=== PATIENT | female | born 1970 | race Hispanic/Latino ===

== ENCOUNTER 2019-02-10 01:50 | Emergency (ER) | payer OTHER ==
[~2019-02-10] VITALS: Ht 162.6 cm; Wt 99.8 kg
--- OUTSIDE RECORDS SUMMARY | 2019-02-10 01:53 | XMS REPORT ---
Author Author Alejandro Cullen [facility] eClinicalWorks Address Unknown Phone Unavailable Care Team Providers Care Photoengraving Photographer Name Role Phone Alejandro Cullen CP Unavailable Allergies No Known Allergies Problems Problem Type Condition Code Onset Dates Condition Status Problem Urinary tract infection, site not specified N39.0 Active Problem Chronic kidney disease, stage 4 (severe) N18.4 Active Problem Vitamin D deficiency, unspecified E55.9 Active Problem Hypertensive chronic kidney disease with stage 1 through stage 4 chronic kidney disease, or unspecified chronic kidney disease I12.9 Active Problem Calculus of kidney N20.0 Active Medications No Known Medications Results No Known Results Summary Purpose eClinicalWorks Submission
--- OUTSIDE RECORDS SUMMARY | 2019-02-10 01:53 | XMS REPORT ---
Author Author Tucker Herzog [facility] eClinicalWorks Address Unknown Phone Unavailable Care Team Providers Care Applied Marine Physics Professor Name Role Phone Tucker Herzog Unavailable Encounters Encounter Location Date feeling ill Kacy Cullen MD [place] Sep 29, 2016 Problems Problem Type Condition ICD-9 Code Onset Dates Condition Status Problem Chronic kidney disease, stage 4 (severe) N18.4 Active Problem Hypertensive chronic kidney disease with stage 1 through stage 4 chronic kidney disease, or unspecified chronic kidney disease I12.9 Active Problem Urinary tract infection, site not specified N39.0 Active Problem Calculus of kidney N20.0 Active Assessment Urinary tract infection, site not specified N39.0 Active Medications Medication Code System Code Instructions Start Date End Date Status Dosage Macrobid MEDISPAN [address]-61 100 MG Orally every 12 hrs Aug 17, 2016 Oct 13, 2016 Active 1 capsule with food Social History Social History Element Qualifiers Date Reported Tobacco Use: . Are you a: former smoker used to smoke 4 cigarettes/day, When did you quit (years): 25 Aug 17, 2016 Use of recreational / street drugs? . Answer: No Aug 17, 2016 Marital Status: . Aug 17, 2016 Do you exercise? . Answer: No Aug 17, 2016 Do you drink alcohol? . Status: No Aug 17, 2016 Occupation: . Unemployed Aug 17, 2016 Summary Purpose eClinicalWorks Submission
--- OUTSIDE RECORDS SUMMARY | 2019-02-10 01:53 | XMS REPORT | Encounter Summary ---
Author Organization Unknown Address [address] [place] [address] Phone [phone] Care Team Providers Care Supervisor Pyrotechnic Loading Name Role Phone Dr. Corky Painter 3 [phone] Lm Beard MD 115 [phone] Javad Cullen 118 [phone] Reason for Visit nausea Instructions 1. Nausea Zofran 8 mg tablet promethazine 25 mg/mL injection solution 2. Gastroesophageal reflux disease ranitidine 150 mg tablet 3. Anxiety alprazolam 0.5 mg tablet 4. Body mass index 30+ - obesity aprenda acerca del peso saludable - [learning about healthy weight] ndice de masa corporal: instrucciones de cuidado - [body mass index: care instructions] 5. Elevated blood-pressure reading without diagnosis of hypertension presin arterial elevada: instrucciones de cuidado - [elevated blood pressure: care instructions] Discussion Note: None recorded. Plan of Care Reminders Provider Appointments None recorded. Lab None recorded. Referral None recorded. Procedures None recorded. Surgeries None recorded. Imaging None recorded. Medications Name Start Date alprazolam 0.5 mg tablet Take 1 tablet every day by oral route as needed for 3 days. ezetimibe 10 mg tablet Take 1 tablet every day by oral route as directed. promethazine 25 mg/mL injection solution 25 mg ranitidine 150 mg tablet Take 1 tablet twice a day by oral route as needed for 14 days. Zofran 8 mg tablet Take 1 tablet every 8 hours by oral route as needed for 5 days. Medications Administered Name Date promethazine 25 mg/mL injection solution 25 mg 7014-76-09K06:38:00 Vitals Height Weight BMI Blood Pressure 5 ft 3 in 222 lbs 39.3 kg/m2 (1) 180/106 mm[Hg] (2) 150/100 mm[Hg] Lab Results None recorded. Allergies Code Code System Name Reaction Severity Status Onset 733 RxNorm Ampicillin Active 412616 RxNorm Zocor Active Problems Name Status Onset Date Source Chronic Kidney Disease Active 11/22/2017 Polycystic Kidney Disease, Adult Type Active 07/10/2018 Unilateral Nephrectomy Active 10/10/2018 Procedures Date Name Performed by Remove Bladder Stone Information not available Kidney Endoscopy Information not available Vaccine List Vaccine Type influenza, unspecified formulation 08/16/2017 07/16/2018 Tdap 12/05/20180.5 mL Social History Smoking Status Never Smoker Past Encounters 12/10/2018 Nausea; Gastroesophageal Reflux Disease; Anxiety; Body Mass Index 30+ - Obesity; Elevated Blood-pressure Reading without Diagnosis of Hypertension Corky Hernandez MD: [address] [place] [address], Ph. 12/05/2018 Upper Respiratory Infection; Vaccination for Diphtheria, Pertussis, and Tetanus; Body Mass Index 40+ - Severely Obese Corky Hernandez MD: [address] [place] [address], Ph. History of Present Illness Note:Complaining of nervousness, restlessness and nausea since last night, started after eating. Concomitantly, burping, heartburn and epigastric pain. Denies bloating, fever, diarrhea, constipation, depression, suicidal/homicidal thoughts. Review of Systems Comprehensive General Adult ROS Reported By: Patient Constitutional: Constitutional: no fever Eyes: Eyes: no vision change Cardiovascular: Cardiovascular: no chest pain, no shortness of breath when walking, no shortness of breath when lying down, no palpitations, no lightheadedness Respiratory: Respiratory: no cough, no wheezing, no shortness of breath Gastrointestinal: Gastrointestinal: no abdominal pain, no vomiting, no constipation, no diarrhea, nausea, dyspepsia, GERD Musculoskeletal: Musculoskeletal: no muscle aches, no swelling in the extremities Integumentary: Skin: no rashes Neurologic: Neurologic: no loss of consciousness, no headaches Psychiatric: Psych: no depression, no sleep disturbances, no alcohol abuse, no hallucinations, no suicidal thoughts, anxiety Physical Exam General Adult Exam (male) Reported By: Patient Constitutional: General Appearance: healthy-appearing, obese. Level of Distress: NAD. Ambulation: ambulating normally Psychiatric: Insight: good judgement. Mental Status: active and alert, normal mood, normal affect. Orientation: to time, to place, to person. Memory: recent memory normal, remote memory normal Eyes: Lids and Conjunctivae: non-injected, no discharge. EOM: EOMI ENMT: Ears: TMs clear. Nose: no sinus tenderness. Lips, Teeth, and Gums: no mouth or lip ulcers. Oropharynx: moist mucous membranes Neck: Neck: supple, trachea midline. Thyroid: no enlargement, non-tender Lungs: Auscultation: breath sounds normal Cardiovascular: Heart Auscultation: RRR, normal S1, normal S2, no murmurs Abdomen: Inspection and Palpation: soft, non-distended, no guarding, no rebound tenderness, no masses, epigastric tenderness. Liver: no hepatomegaly. Spleen: no splenomegaly. Hernia: none palpable Neurologic: Gait and Station: normal gait
--- OUTSIDE RECORDS SUMMARY | 2019-02-10 01:53 | XMS REPORT ---
Author Author Tucker Herzog [facility] eClinicalWorks Address Unknown Phone Unavailable Care Team Providers Care Mutuel Teller Name Role Phone Tucker Herzog Unavailable Encounters Encounter Location Date feeling ill Kacy Cullen MD [place] Sep 29, 2016 abx correction Kacy Cullen MD [place] Dec 05, 2016 Problems Problem Type Condition ICD-9 Code Onset Dates Condition Status Problem Chronic kidney disease, stage 4 (severe) N18.4 Active Problem Hypertensive chronic kidney disease with stage 1 through stage 4 chronic kidney disease, or unspecified chronic kidney disease I12.9 Active Problem Urinary tract infection, site not specified N39.0 Active Problem Calculus of kidney N20.0 Active Medications Medication Code System Code Instructions Start Date End Date Status Dosage Macrobid MEDISPAN [id number] 100 MG Orally every 12 hrs Dec 12, 2016 Active 1 capsule with food Social History Social History Element Qualifiers Date Reported Tobacco Use: . Are you a: nonsmoker Oct 26, 2016 Use of recreational / street drugs? . Answer: No Oct 26, 2016 Do you drink alcohol? . Status: No Oct 26, 2016 Summary Purpose eClinicalWorks Submission
--- OUTSIDE RECORDS SUMMARY | 2019-02-10 01:53 | XMS REPORT | Encounter Summary ---
Author Organization Unknown Address [address] [place] [address] Phone [phone] Care Team Providers Care Health Sciences Program Coordinator Name Role Phone Dr. Corky Painter 3 [phone] Lm Beard MD 115 [phone] Javad Cullen 118 [phone] Reason for Visit nausea Instructions 1. Nausea [...] promethazine 25 mg/mL injection solution 25 mg 2670-90-50J88:38:00 Vitals Height Weight BMI Blood Pressure 5 ft 3 in 222 lbs 39.3 kg/m2 (1) 180/106 mm[Hg] (2) 150/100 mm[Hg] Lab Results None recorded. Allergies Code Code System Name Reaction Severity Status Onset 733 RxNorm Ampicillin Active 667830 RxNorm Zocor Active Problems Name Status Onset [...] Diagnosis of Hypertension Corky Hernandez MD: [address] [place] [address], Ph. 12/05/2018 Upper Respiratory Infection; Vaccination for Diphtheria, Pertussis, and Tetanus; Body Mass Index 40+ - Severely Obese Corky Hernandez MD: [address] [place] [address], Ph. History of Present Illness Note:Complaining of [...] no shortness of breath Gastrointestinal: Gastrointestinal: no vomiting, no constipation, no diarrhea, abdominal pain, nausea, dyspepsia, GERD Musculoskeletal: Musculoskeletal: no muscle [...]
--- OUTSIDE RECORDS SUMMARY | 2019-02-10 01:53 | XMS REPORT ---
Author Author Alejandro Cullen Organization eClinicalWorks Address Unknown Phone Unavailable Care Team Providers Care Automatic Oven Operator Name Role Phone Alejandro Cullen CP Unavailable Allergies No Known Allergies Problems Problem Type Condition Code Onset Dates Condition Status Problem Urinary tract infection, site not specified N39.0 Active Problem Chronic kidney disease, stage 4 (severe) N18.4 Active Problem Vitamin D deficiency, unspecified E55.9 Active Assessment Urinary tract infection, site not specified N39.0 Active Problem Hypertensive chronic kidney disease with stage 1 through stage 4 chronic kidney disease, or unspecified chronic kidney disease I12.9 Active Problem Calculus of kidney N20.0 Active Medications Medication Code System Code Instructions Start Date End Date Status Dosage Macrobid [facility] [address]-93 100 MG Orally every 12 hrs as needed Aug 07, 2017 Active 1 capsule with food Results No Known Results Summary Purpose eClinicalWorks Submission
--- OUTSIDE RECORDS SUMMARY | 2019-02-10 01:53 | XMS REPORT | Continuity of Care Document ---
Author Author [facility] Address Unknown Phone Unavailable Problems Problem Status Onset Date Classification Date Reported Comments Source Elevated blood-pressure reading without diagnosis of hypertension 12/10/2018 Diagnosis 12/10/2018 [facility] Anxiety 12/10/2018 Diagnosis 12/10/2018 [facility] Gastroesophageal reflux disease 12/10/2018 Diagnosis 12/10/2018 [facility] Nausea 12/10/2018 Diagnosis 12/10/2018 [facility] Body mass index 30+ - obesity 12/10/2018 Diagnosis 12/10/2018 [facility] Upper respiratory infection 12/05/2018 Diagnosis 12/10/2018 [facility] Body mass index 40+ - severely obese 12/05/2018 Diagnosis 12/10/2018 [facility] Vaccination for diphtheria, pertussis, and tetanus 12/05/2018 Diagnosis 12/10/2018 [facility] Unilateral Nephrectomy 10/10/2018 Problem 12/10/2018 [facility] Polycystic Kidney Disease, Adult Type 07/10/2018 Problem 12/10/2018 [facility] Chronic Kidney Disease 11/22/2017 Problem 12/10/2018 [facility] Urinary tract infection, site not specified Active Problem 10/20/2017 Nicolás Cullen Chronic kidney disease, stage 4 Active Problem 10/20/2017 Nicolás Cullen Vitamin D deficiency, unspecified Active Problem 10/20/2017 Nicolás Cullen Hypertensive chronic kidney disease with stage 1 through stage 4 chronic kidney disease, or unspecified chronic kidney disease Active Problem 10/20/2017 Nicolás Cullen Calculus of kidney Active Problem 10/20/2017 Nicolás Cullen Medications Medication Details Route Status Patient Instructions Ordering Provider Order Date Source Macrobid 1 capsule with food Orally Active 100 MG Orally every 12 hrs as needed Alyse 08/07/2017 Nicolás Burnettro Alyse Macrobid 1 capsule with food Orally Active 100 MG Orally every 12 hrs Ronald Valdivia 12/12/2016 Nicolás Cullen Macrobid 1 capsule with food Orally Active 100 MG Orally every 12 hrs Ronald Ashleyoza 08/17/2016 Nicolás Farnsworth Ciarraharjeet Alprazolam 0.5 MG Oral Tablet alprazolam 0.5 mg tablet Take 1 tablet every day by oral route as needed for 3 days. Active [facility] ezetimibe 10 MG Oral Tablet ezetimibe 10 mg tablet Take 1 tablet every day by oral route as directed. Active [facility] 1 ML Promethazine Hydrochloride 25 MG/ML Injection promethazine 25 mg/mL injection solution 25 mg Active [facility] Ranitidine 150 MG Oral Tablet ranitidine 150 mg tablet Take 1 tablet twice a day by oral route as needed for 14 days. Active [facility] Ondansetron 8 MG Oral Tablet [Zofran] Zofran 8 mg tablet Take 1 tablet every 8 hours by oral route as needed for 5 days. Active [facility] Azithromycin 250 MG Oral Tablet azithromycin 250 mg tablet TAKE 2 TABLETS (500 MG) BY ORAL ROUTE ONCE DAILY FOR 1 DAY THEN 1 TABLET (250 MG) BY ORAL ROUTE ONCE DAILY FOR 4 DAYS Active [facility] Codeine Phosphate 2 MG/ML / Guaifenesin 20 MG/ML Oral Solution [Cheratussin] Cheratussin AC 10 mg-100 mg/5 mL oral liquid Take 10 mL every 8 hours by oral route as needed for 5 days. Active [facility] Fluticasone propionate 0.05 MG/ACTUAT Metered Dose Nasal [place] fluticasone 50 mcg/actuation nasal spray,suspension [place] 1 spray twice a day by intranasal route as directed for 14 days. Active [facility] Allergies, Adverse Reactions, Alerts Substance Category Reaction Severity Reaction type Status Date Reported Comments Source Ampicillin Allergy to substance 11/07/2017 [facility] Zocor Allergy to substance 11/07/2017 [facility] Immunizations Immunization Date Given Site Status Last Updated Comments Source Tdap 12/05/2018 completed [facility] influenza, unspecified formulation 07/16/2018 completed [facility] influenza, unspecified formulation 08/16/2017 completed [facility] Results Order Name Results Value Reference Range Date Interpretation Comments Source Vital Signs Vital Sign Value Date Comments Source Diastolic (mm Hg) 100 12/10/2018 [facility] Height 63 12/10/2018 [facility] Systolic (mm Hg) 150 12/10/2018 [facility] Weight 222 12/10/2018 [facility] Diastolic (mm Hg) 100 12/05/2018 [facility] Height 63 12/05/2018 [facility] Systolic (mm Hg) 150 12/05/2018 [facility] Weight 223.2 12/05/2018 [facility] Encounters Location Location Details Encounter Type Encounter Number Reason For Visit Attending Provider ADM Date DC Date Status Source MD EDWINA Mims feeling ill [id number] 09/29/2016 09/29/2016 MD EDIWNA Martinez feeling ill [id number] 09/29/2016 09/29/2016 MD EDWINA Martinez abx correction [id number] 12/05/2016 12/05/2016 Nicolás Cullen [facility] Corky A. Inocencio Hernandez MD: [address] [place] [address], Ph. [id number] Corky Inocencio Hernandez 12/05/2018 [facility] Corky A. Inocencio Hernandez MD: [address] [place] [address], Ph. [id number] Corkysusan Hernandez 12/05/2018 [facility] Corky A. Inocencio Hernandez MD: [address] [place] [address], Ph. [id number] Corky Hernandez 12/05/2018 [facility] Corky A. Inocencio Hernandez MD: [address] [place] [address], Ph. [id number] Corky Hernandez 12/10/2018 [facility] Corky Hernandez MD: [address] [place], [place] [address], Ph. [id number] Corky Hernandez 12/10/2018 [facility] Procedures Procedure Code Date Perfomer Comments Source Remove Bladder Stone 15963 [facility] Kidney Endoscopy [address] [facility]
--- OUTSIDE RECORDS SUMMARY | 2019-02-10 01:53 | XMS REPORT | Clinical Summary ---
Author Author BRITT [facility] Organization [facility] Address Unknown Phone Unavailable Care Team Providers [employer]er Name Role Phone Tono Gaming MD PCP Unavailable Allergies Comments Active Allergy Reactions Severity Noted Date Ampicillin Rash Low 05/06/2018 Simvastatin Anaphylaxis High 05/06/2018 Medications End Date Status Medication Sig Dispensed Refills Start Date Active traMADol (ULTRAM) 50 mg Take 50 mg by 0 tablet mouth every 6 (six) hours as needed for Pain. Active acetaminophen-codeine Take 1 tablet 0 (TYLENOL #3) 300-30 mg by mouth per tablet every 4 (four) hours as needed for Pain. Active gabapentin (NEURONTIN) Take 1 30 capsule 0 300 MG capsule capsule (300 8 mg total) by mouth daily For post-operativ e pain. 05/06/2018 Discontinued sulfamethoxazole-trimetho Take 1 tablet 14 tablet 0 prim (BACTRIM DS) 800-160 (160 mg of 8 mg per tablet trimethoprim total) by mouth 2 (two) times daily for 7 days smx-tmp DS (BACTRIM) 800-160 mg tabs (1tab q12 D10). 05/13/2018 sulfamethoxazole-trimetho Take 1 tablet 14 tablet 0 prim (BACTRIM DS) 800-160 (160 mg of 8 mg per tablet trimethoprim total) by mouth 2 (two) times daily for 7 days smx-tmp DS (BACTRIM) 800-160 mg tabs (1tab q12 D10). 09/05/2018 docusate sodium (COLACE) Take 1 20 capsule 0 100 MG capsule capsule (100 8 mg total) by mouth 2 (two) times daily for 10 days. 09/05/2018 acetaminophen-codeine Take 1 tablet 20 tablet 0 (TYLENOL-CODEINE #3) by mouth 8 300-30 mg per tablet every 6 (six) hours as needed for up to 10 days. Max Daily Amount: 4 tablets Active Problems Problem Noted Date Acute left lower quadrant pain 09/19/2018 Atrophic kidney 08/24/2018 Encounters Care Team Description Date Type Specialty Link, Lm Bradshaw MD , [facility] Room Nephrolithiasis; Hydronephrosis, unspecified hydronephrosis type 01/23/2019 Hospital Computed Tomography Encounter 09/20/2018 Travel , MD Kyaw Moore Kinjal M., MD Lin, Fang-Ying, MD Acute left lower quadrant pain (Primary Dx); Complicated urinary tract infection; Acute renal insufficiency 09/19/2018 Hospital Oncology - Encounter 09/21/2018 LinkLm MD Nephrolithiasis (Primary Dx); Hydronephrosis, unspecified hydronephrosis type 09/18/2018 Outside Orders Central Scheduling Link, Lm Bradshaw MD LAPAROSCOPY,NEPHRECTOMY 08/24/2018 Surgery Kendell Valderrama MD 08/24/2018 Anesthesia Event Link, Lm Bradshaw MD 08/24/2018 Hospital General Internal Medicine - Encounter 08/26/2018 Lm Beard MD 08/20/2018 Hospital Pre-Admission Testing Encounter 08/20/2018 Orders Only General Internal Medicine Gunnar Mock MD Atypical chest pain (Primary Dx); Essential hypertension; Obesity, unspecified classification, unspecified obesity type, unspecified whether serious comorbidity present 05/06/2018 Emergency Emergency Medicine 05/06/2018 Orders Only General Internal Medicine after 02/09/2018 Social History Date Tobacco Use Types Packs/Day Years Used Never Smoker Smokeless Tobacco: Never Used Alcohol Use Drinks/Week oz/Week Comments No Sex Assigned at Date Recorded Not on file Industry Job Start Date Occupation Not on file Not on file Not on file Travel End Travel History Travel Start No recent travel history available. Last Filed Vital Signs Time Taken Vital Sign Reading 09/21/2018 12:00 PM [facility] Blood Pressure 152/84 09/21/2018 12:00 PM [facility] Pulse 78 09/21/2018 12:00 PM [facility] Temperature 36.9 C (98.5 F) 09/21/2018 12:00 PM [facility] Respiratory Rate 18 09/21/2018 12:00 PM [facility] Oxygen Saturation 98% - Inhaled Oxygen - Concentration 09/20/2018 3:17 AM [facility] Weight 100.7 kg (221 lb 14.4 oz) 09/20/2018 3:17 AM [facility] Height 162.6 cm (5' 4") 09/20/2018 3:17 AM [facility] Body Mass Index 38.09 Plan of Treatment Not on file Procedures Comments Procedure Name Priority Date/Time Associated Diagnosis CT ABDOMEN/PELVIS WITHOUT Routine 01/23/2019 Nephrolithiasis IV CONTRAST 8:27 AM CDT Hydronephrosis, unspecified hydronephrosis type CBC W/PLT COUNT & AUTO Routine 09/21/2018 DIFFERENTIAL 5:12 AM [facility] CBC W/PLT COUNT & AUTO Routine 09/21/2018 DIFFERENTIAL 5:12 AM [facility] BASIC METABOLIC PANEL (7) Routine 09/21/2018 5:12 AM [facility] CBC W/PLT COUNT & AUTO Routine 09/20/2018 DIFFERENTIAL 5:53 AM [facility] CBC W/PLT COUNT & AUTO Routine 09/20/2018 DIFFERENTIAL 5:53 AM [facility] BASIC METABOLIC PANEL (7) Routine 09/20/2018 5:53 AM [facility] URINE CULTURE STAT 09/20/2018 12:39 AM [facility] CT ABDOMEN/PELVIS WITHOUT STAT 09/19/2018 IV CONTRAST 9:52 PM [facility] SCREEN, URINE STAT 09/19/2018 8:55 PM [facility] URINALYSIS W/ MICROSCOPIC STAT 09/19/2018 8:55 PM [facility] CBC W/PLT COUNT & AUTO STAT 09/19/2018 DIFFERENTIAL 8:13 PM [facility] HEPATIC FUNCTION PANEL STAT 09/19/2018 8:13 PM [facility] CBC W/PLT COUNT & AUTO STAT 09/19/2018 DIFFERENTIAL 8:13 PM [facility] BASIC METABOLIC PANEL (7) STAT 09/19/2018 8:13 PM [facility] BASIC METABOLIC PANEL (7) Routine 08/26/2018 12:23 PM [facility] CBC W/PLT COUNT & AUTO Routine 08/26/2018 DIFFERENTIAL 5:49 AM [facility] CBC W/PLT COUNT & AUTO Routine 08/26/2018 DIFFERENTIAL 5:49 AM [facility] BASIC METABOLIC PANEL (7) Routine 08/26/2018 5:49 AM [facility] CBC W/PLT COUNT & AUTO Routine 08/25/2018 DIFFERENTIAL 5:10 AM [facility] CBC W/PLT COUNT & AUTO Routine 08/25/2018 DIFFERENTIAL 5:10 AM [facility] BASIC METABOLIC PANEL (7) Routine 08/25/2018 5:10 AM [facility] HEMOGLOBIN AND HEMATOCRIT Routine 08/24/2018 5:25 PM [facility] BASIC METABOLIC PANEL (7) Routine 08/24/2018 5:25 PM [facility] TISSUE EXAM AP Routine 08/24/2018 4:20 PM [facility] FUNGUS CULTURE + SMEAR Routine 08/24/2018 2:53 PM [facility] SURGICALLY OBTAINED Routine 08/24/2018 CULTURE + GRAM STAIN 2:53 PM [facility] ANAEROBIC CULTURE Routine 08/24/2018 2:53 PM [facility] LAPAROSCOPY,NEPHRECTOMY 08/24/2018 Nonfunctioning kidney 12:30 PM [facility] POCT , URINE STAT 08/24/2018 11:02 AM [facility] TRANSFUSION SERVICE 08/21/2018 REPORT - SCAN 6:03 PM [facility] TYPE AND SCREEN, Routine 08/20/2018 AUTOMATED 5:26 PM [facility] ECG 12-LEAD Routine 08/20/2018 5:23 PM [facility] ECG 12-LEAD Routine 08/20/2018 5:23 PM [facility] Procedure Note - Interface, External Ris In - 08/20/2018 5:56 PM [facility] Ventricula r Rate 83 BPM Atrial Rate 83 BPM P-R Interval 146 ms QRS Duration 86 ms Q-T Interval 374 ms QTC Calculatio n(Bazett) 439 ms P [place] 43 degrees R [place] 17 degrees T [place] 37 degrees Normal sinus rhythm Normal ECG When compared with ECG of 8 02:14, Minimal criteria for Anterior infarct are no longer Present ED ECG INTERPRETATION Routine 05/07/2018 5:15 PM CDT B-TYPE NATRIURETIC FACTOR STAT 05/06/2018 (BNP) 5:12 AM CDT COMPREHENSIVE METABOLIC STAT 05/06/2018 PANEL 5:12 AM CDT TROPONIN I STAT 05/06/2018 5:12 AM CDT LIPASE STAT 05/06/2018 5:12 AM CDT MAGNESIUM STAT 05/06/2018 5:12 AM CDT XR CHEST 1 VIEW STAT 05/06/2018 PORTABLE/BEDSIDE 2:46 AM CDT URINALYSIS MICROSCOPIC Routine 05/06/2018 2:36 AM CDT URINALYSIS WITH STAT 05/06/2018 MICROSCOPIC IF INDICATED 2:36 AM CDT CBC W/PLT COUNT & AUTO STAT 05/06/2018 DIFFERENTIAL 2:35 AM CDT CBC W/PLT COUNT & AUTO STAT 05/06/2018 DIFFERENTIAL 2:35 AM CDT ECG 12-LEAD Routine 05/06/2018 2:14 AM CDT Procedure Note - Interface, External Ris In - 05/06/2018 6:27 AM CDT Ventricula r Rate 94 BPM Atrial Rate 94 BPM P-R Interval 160 ms QRS Duration 74 ms Q-T Interval 362 ms QTC Calculatio n(Bazett) 452 ms P [place] 33 degrees R [place] 12 degrees T [place] 35 degrees Normal sinus rhythm Cannot rule out Anterior infarct , age undetermin ed Abnormal ECG No previous ECGs available ECG 12-LEAD STAT 05/06/2018 2:14 AM CDT after 02/09/2018 Results * CT Abdomen/Pelvis without IV Contrast (01/23/2019 8:27 AM CDT) Only the most recent of 2 results within the time period is included. Specimen Narrative Performed At FINAL REPORT [employer] ABDOMINAL AND PELVIS CT DATED 01/23/2019 COMPARISON: September 19, 2018 CLINICAL INFORMATION:Renal stone Protocol. Follow up on stone burden status of solitary kidney TECHNIQUE:Axial images of the abdomen and pelvis were obtained from diaphragm to the pubic symphysis without GI or intravenous contrast. This exam was performed according to our departmental dose-optimization program, which includes automated exposure control, adjustment of the mA and/or kV according to patient size and/or use of interactive reconstruction technique. COMMENT: Liver and spleen are normal in size without focal abnormality.Gallbladder is contracted. No gallstone or biliary dilatation is noted. Pancreas and adrenals are unremarkable. Left skin is surgically absent. Again noted staghorn stones in upper pole right kidney unchanged from prior examination. A peripheral calcified cystic lesion is seen in the midpole right kidney measuring approximately 2.6 x 4.7 cm. A partially calcified cyst is seen inferior pole right kidney measuring 3.2 x 3.5 cm. Several small stones are seen in the mid inferior pole left kidney. No hydronephrosis or hydroureter is seen on the right. There is minimal uroepithelial thickening involving the right renal pelvis and proximal right ureter. The small and large bowel are suboptimally evaluated secondary to lack of GI and intravenous contrast. Diverticular disease is seen in the large bowel without diverticulitis. The small bowel and appendix are normal in caliber. Uterus and ovaries are unremarkable. No mass, adenopathy or ascites is present. IMPRESSION: 1. Status post left nephrectomy. 2. Stable staghorn renal stones in the upper pole right kidney and peripheral calcified cystic lesions in the mid and inferior pole right kidney. 3. Diverticulosis without diverticulitis. Signed: Jadyn Gonzalez MD Report Verified Date/Time:01/23/2019 08:42:46 Reading Location: [address] Reading Room Procedure Note Interface, External Ris In - 01/23/2019 8:45 AM CDT FINAL REPORT ABDOMINAL AND PELVIS CT DATED 01/23/2019 COMPARISON: September 19, 2018 CLINICAL INFORMATION: Renal stone Protocol. Follow up on stone burden status of solitary kidney TECHNIQUE: Axial images of the abdomen and pelvis were obtained from diaphragm to the pubic symphysis without GI or intravenous contrast. This exam was performed according to our departmental dose-optimization program, which includes automated exposure control, adjustment of the mA and/or kV according to patient size and/or use of interactive reconstruction technique. COMMENT: Liver and spleen are normal in size without focal abnormality. Gallbladder is contracted. No gallstone or biliary dilatation is noted. Pancreas and adrenals are unremarkable. Left skin is surgically absent. Again noted staghorn stones in upper pole right kidney unchanged from prior examination. A peripheral calcified cystic lesion is seen in the midpole right kidney measuring approximately 2.6 x 4.7 cm. A partially calcified cyst is seen inferior pole right kidney measuring 3.2 x 3.5 cm. Several small stones are seen in the mid inferior pole left kidney. No hydronephrosis or hydroureter is seen on the right. There is minimal uroepithelial thickening involving the right renal pelvis and proximal right ureter. The small and large bowel are suboptimally evaluated secondary to lack of GI and intravenous contrast. Diverticular disease is seen in the large bowel without diverticulitis. The small bowel and appendix are normal in caliber. Uterus and ovaries are unremarkable. No mass, adenopathy or ascites is present. IMPRESSION: 1. Status post left nephrectomy. 2. Stable staghorn renal stones in the upper pole right kidney and peripheral calcified cystic lesions in the mid and inferior pole right kidney. 3. Diverticulosis without diverticulitis. Signed: Jadyn Gonzalez MD Report Verified Date/Time: 01/23/2019 08:42:46 Reading Location: [address] Transitional Reading Room Performing Organization Address City/State/Zipcode Phone Number GE [facility]IS * CBC with platelet count + automated diff (09/21/2018 5:12 AM [facility]) Only the most recent of 6 results within the time period is included. WBC 7.2 3.5 - 10.5 K/L [facility] RBC 4.09 3.93 - 5.22 M/L [facility] Hemoglobin 9.9 (L) 11.2 - 15.7 GM/DL [facility] Hematocrit 33.1 (L) 34.1 - 44.9 % [facility] MCV 80.9 79.4 - 94.8 fL [facility] MCH 24.2 (L) 25.6 - 32.2 pg [facility] MCHC 29.9 (L) 32.2 - 35.5 GM/DL [facility] RDW 15.4 (H) 11.7 - 14.4 % [facility] Platelets 244 150 - 450 K/CU MM [facility] MPV 12.0 9.4 - 12.3 fL [facility] nRBC 0 0 - 0 /100 WBC [facility] % Neutros 70 % [facility] % Lymphs 17 % [facility] % Monos 9 % [facility] % Eos 4 % [facility] % Baso 1 % [facility] # Neutros 5.07 1.56 - 6.13 K/L [facility] # Lymphs 1.19 1.18 - 3.74 K/L [facility] # Monos 0.62 (H) 0.24 - 0.36 K/L [facility] # Eos 0.27 0.04 - 0.36 K/L [facility] # Baso 0.05 0.01 - 0.08 K/L [facility] Immature 0 0 - 1 % [facility] Granulocytes-[facility] Specimen Blood Performing Organization Address City/[facility]/Zipcode Phone Number [facility] [address] [place] [phone] [facility] * Basic Metabolic Panel (09/21/2018 5:12 AM [facility]) Only the most recent of 7 results within the time period is included. Sodium 136 136 - 145 meq/L [facility] Potassium 4.1 3.5 - 5.1 meq/L [facility] Chloride 109 (H) 98 - 107 meq/L [facility] CO2 18 (L) 22 - 29 meq/L [facility] BUN 25 (H) 7 - 21 mg/dL [facility] Creatinine 1.90 (H) 0.57 - 1.25 mg/dL [facility] Glucose 96 70 - 105 mg/dL [facility] Calcium 8.6 8.4 - 10.2 mg/dL [facility] EGFR 28Comment: ESTIMATED GFR IS mL/min/1.73 sq m [facility] NOT ACCURATE CREATININE [facility] CLEARANCE IN PREDICTING GLOMERULAR FILTRATION RATE. ESTIMATED GFR IS NOT APPLICABLE FOR DIALYSIS PATIENTS. Specimen Blood Performing Organization Address [facility] Cent[facility]ode Phone Number [address] [address] [phone] * Urine culture (09/20/2018 12:39 AM [facility]) Result >100,000 col/mL skin ca [facility] Specimen Urine Performing Organization Address City/[facility]/Zipcode Phone Number [place] [phone] [place] [address] [facility] * Screen, urine (09/19/2018 8:55 PM [facility]) Preg Test, Ur Negative [facility] Specimen Urine Performing Organization Address City/[facility]/Zipcode Phone Number [facility] [address] [address] [facility] * Urinalysis w/Microscopic (09/19/2018 8:55 PM [facility]) Color, UA Light Yellow [facility] Clarity, UA Hazy [facility] Specific [place], UA 1.011 1.001 - 1.035 [facility] pH, UA 6.0 5.0 - 8.0 [facility] Protein, UA 50 mg/dL (A) Negative [facility] Glucose, UA Negative Negative [facility] Ketones, UA Negative Negative [facility] Bilirubin, UA Negative Negative [facility] Blood, UA Small (A) Negative [facility] Nitrite, UA Negative Negative [facility] Leukocytes, UA Large (A) Negative [facility] Urobilinogen, UA 0.2 0.2 - 1.0 mg/dL [facility] RBC, UA 13 /HPF [facility] WBC, UA >182 /HPF [facility] Bacteria, UA Rare [facility] Squam Epithel, UA 1 /HPF [facility] Specimen Source Urine, Clean Catch [facility] Specimen Urine Performing Organization Address City/State/Zipcode Phone Number [address] [address] [facility] * Hepatic function panel (09/19/2018 8:13 PM [facility]) Protein, Total 7.7 6.0 - 8.3 gm/dL [facility] Albumin 4.0 3.5 - 5.0 g/dL [facility] Total Bilirubin 0.4 0.2 - 1.2 mg/dL [facility] Bilirubin, Direct 0.1 0.1 - 0.5 mg/dL [facility] Alkaline Phosphatase 80 40 - 150 U/L [facility] AST 11 5 - 34 U/L [facility] ALT <6 (L) 6 - 55 U/L [facility] Specimen Blood Performing Organization Address City/[facility] Cent[facility]ode Phone Number [facility] [address] [place], [place] [phone] [facility] * Hemoglobin and hematocrit (08/24/2018 5:25 PM [facility]) Hemoglobin 9.6 (L) 11.2 - 15.7 GM/DL [facility] Hematocrit 31.2 (L) 34.1 - 44.9 % [facility] Specimen Blood Performing Organization Address City/[facility] Center[facility]i Phone Number [facility] [address] [place], [place] [phone] [facility] * Tissue Exam (08/24/2018 4:20 PM [facility]) Case Report Surgical Pathology [facility] Report [facility] Case: [id number] Authorizing Provider:Lm Beard MD Collected: 08/24/2018 1620 Ordering Location: [facility] PERIOPERATIVE Received: 08/27/2018 0820 SERVICES Pathologist: Julius Coffey MD Specimen:Kidney, Left DIAGNOSIS PART A LEFT KIDNEY, [facility] NEPHRECTOMY: [facility] END STAGE KIDNEY DISEASE WITH NEPHROLITHIASIS AND ASSOCIATED DILATIONAL CHANGES. NEGATIVE FOR CARCINOMA. MULTIPLE REACTIVE LYMPH NODES. Signing Pathologist Direct Phone Line: [phone] CPT Code(s) 62280 [facility] CLINICAL HISTORY Nonfunctioning kidney [facility] SPECIMEN SOURCE Left kidney [facility] GROSS DESCRIPTION Received fresh labeled [facility] "kidney, left" is a 1,327 gm, [facility] 22.0 x 17.0 x 8.0 cm, left simple nephrectomy specimen with an attached 5.5 cm in length x 0.3 cm in diameter ureter. The adrenal gland is not present. The kidney is bivalved to reveal a markedly dilated pelvis and caliceal system containing yellow-aguilera semisolid material and multiple light-aguilera calculi ranging in size from 0.3 cm to 1.5 cm in greatest dimension. The lining of the pelvis and caliceal system is gaston-white and smooth. No discrete masses are identified. The surrounding renal parenchyma is pale-aguilera, dense and unremarkable. Section code: A1, parallel ureteral and vascular resection margins; A2-A11, sales representative health insurance sections of kidney; A12-A14, multiple intact lymph nodes. DB/ew MICROSCOPIC DESCRIPTION PERFORMED [facility] Specimen Tissue Performing Organization Address [facility] Centercomi Phone Number [address] [phone] [facility] * Anaerobic culture (08/24/2018 2:53 PM [facility]) Result No anaerobes isolated [facility] Specimen Urine Performing Organization Address [facility] Centercode Phone Number [address] [phone] [facility] * Surgically obtained culture + gram stain (08/24/2018 2:53 PM [facility]) Result No growth [facility] Gram Stain Result <1+ WBCs [facility] Gram Stain Result No organisms seen [facility] Specimen Urine Performing Organization Address [facility] Centercode Phone Number [address] [address] [facility] * Fungus culture + smear (08/24/2018 2:53 PM [facility]) Result No fungus isolated in 28 days [facility] Fungus Smear No fungi seen [facility] Specimen Urine Performing Organization Address [facility] Centercode Phone Number [address] [address] [facility] * POCT , urine (08/24/2018 11:02 AM [facility]) Test Urine, POC Negative Control line present?, Yes POC Background clear?, POC Yes UPT Cassette Lot #, POC [id number] UPT Cassette Expiration 02/13/2020 Date, POC Specimen * TRANSFUSION SERVICE REPORT - SCAN (08/21/2018 6:03 PM [facility]) Narrative Performed At * Type and screen, automated (08/20/2018 5:26 PM [facility]) ABO/RH AUTOMATED (BEAKER) O POSITIVE [facility] Ab Scrn NEGATIVE [facility] Specimen Blood Performing Organization Address City/State/Zipcode Phone Number [facility] [address] [place] [address] [facility] * ECG 12 lead (08/20/2018 5:23 PM [facility]) Only the most recent of 2 results within the time period is included. Specimen Narrative Performed At Ventricular Rate 83 BPM GE MUSE Atrial Rate 83 BPM P-R Interval 146 ms QRS Duration 86 ms Q-T Interval 374 ms QTC Calculation(Bazett) 439 ms P [place] 43 degrees R [place] 17 degrees T [place] 37 degrees Normal sinus rhythm Normal ECG When compared with ECG of 06-MAY-2018 02:14, Minimal criteria for Anterior infarct are no longer Present Confirmed by Jagruti FIELDS MICHAEL ([id number]) on 08/21/2018 6:28:01 AM Procedure Note Interface, External Ris In - 08/21/2018 6:28 AM DIRECTOR [facility] Ventricular Rate 83 BPM Atrial Rate 83 BPM P-R Interval 146 ms QRS Duration 86 ms Q-T Interval 374 ms QTC Calculation(Bazett) 439 ms P [place] 43 degrees R [place] 17 degrees T [place] 37 degrees Normal sinus rhythm Normal ECG When compared with ECG of 06-MAY-2018 02:14, Minimal criteria for Anterior infarct are no longer Present Confirmed by Jagruti FIELDS MICHAEL ([id number]) on 08/21/2018 6:28:01 AM Performing Organization Address City/State/Zipcode Phone Number [employer] * ED ECG Interpretation (05/07/2018 5:15 PM CDT) Narrative Performed At Gunnar Mock MD 05/07/20185:15 PM ECG/EKG Interpretation Date/Time: 05/06/2018 2:14 AM Performed by: GUNNAR MOCK Authorized by: GUNNAR MOCK The ECG was interpreted by ED physician. The ECG is interpreted as sinus rhythm. Rate is normal rate. Heart rate is 94 BPM. Conduction: conduction normal. ST segments normal. T waves normal. [place] is normal. Other findings: no other findings. Clinical Impression: abnormal ECGECG reviewed and does not meet STEMI criteria. Patient tolerance: Patient tolerated the procedure well with no immediate complications * Troponin I (05/06/2018 5:12 AM CDT) Troponin I <0.01 0.00 - 0.03 ng/mL [facility] Specimen Blood Narrative Performed At Troponin I (TnI) levels must be interpreted in the context of the presenting [facility] symptoms and the clinical findings. Elevated TnI levels indicate myocardial [facility] damage, but are not specific for ischemic heart disease. Elevated TnI levels are seen in patients with other cardiac conditions (including myocarditis and congestive heart failure), and slight TnI elevations occur in patients with other conditions, including sepsis, renal failure, acidosis, acute neurological disease, and persistent tachyarrhythmia. Performing Organization Address [facility] Phone Number [address] * B-type natriuretic peptide (05/06/2018 5:12 AM CDT) BNP 18 0 - 100 pg/mL [facility] Specimen Blood Performing Organization Address [facility] [place] [address] [phone] * Magnesium (05/06/2018 5:12 AM CDT) Magnesium 2.0 1.6 - 2.6 mg/dL [facility] Specimen Blood Performing Organization Address [facility] [place] [address] [facility] * Lipase (05/06/2018 5:12 AM CDT) Lipase 19 8 - 78 U/L [facility] Specimen Blood Performing Organization Address City/State/Zipcode Phone Number [facility] [address] [place] [address] [facility] * Comprehensive metabolic panel (05/06/2018 5:12 AM CDT) Protein, Total 7.5 6.0 - 8.3 gm/dL [facility] Albumin 3.8 3.5 - 5.0 g/dL [facility] Alkaline Phosphatase 84 40 - 150 U/L [facility] Total Bilirubin 0.3 0.2 - 1.2 mg/dL [facility] Sodium 135 (L) 136 - 145 meq/L [facility] Potassium 3.9 3.5 - 5.1 meq/L [facility] Chloride 107 98 - 107 meq/L [facility] CO2 19 (L) 22 - 29 meq/L [facility] BUN 26 (H) 7 - 21 mg/dL [facility] Creatinine 1.49 (H) 0.57 - 1.25 mg/dL [facility] Glucose 111 (H) 70 - 105 mg/dL [facility] Calcium 9.2 8.4 - 10.2 mg/dL [facility] AST 15 5 - 34 U/L [facility] ALT 12 6 - 55 U/L [facility] EGFR 38Comment: ESTIMATED GFR IS mL/min/1.73 sq m [facility] NOT ACCURATE CREATININE [facility] CLEARANCE IN PREDICTING GLOMERULAR FILTRATION RATE. ESTIMATED GFR IS NOT APPLICABLE FOR DIALYSIS PATIENTS. Specimen Blood Performing Organization Address City/State/Zipcode Phone Number [facility] [address] [place] [address] [facility] * XR chest 1 view portable / bedside (05/06/2018 2:46 AM CDT) Specimen Narrative Performed At FINAL REPORT GE RIS RAD, CHEST, 1 VIEW, NON DEPT INDICATION: chest pain COMPARISON: None TECHNIQUE: Single frontal view of the chest. IMPRESSION: Low lung volumes. Cardiomediastinal silhouette within normal limits. No overt consolidative or congestive change. No acute osseous abnormality. Signed: Tani Nunes MD Report Verified Date/Time:05/06/2018 02:51:24 Reading Location: [address] Reading Room Procedure Note Interface, External Ris In - 05/06/2018 2:53 AM CDT FINAL REPORT RAD, CHEST, 1 VIEW, NON DEPT INDICATION: chest pain COMPARISON: None TECHNIQUE: Single frontal view of the chest. IMPRESSION: Low lung volumes. Cardiomediastinal silhouette within normal limits. No overt consolidative or congestive change. No acute osseous abnormality. Signed: Tani Nunes MD Report Verified Date/Time: 05/06/2018 02:51:24 Reading Location: [address] Reading Room Performing Organization Address City/State/Zipcode Phone Number RIS * Urinalysis Microscopic Only (05/06/2018 2:36 AM CDT) RBC, UA 16 /HPF [facility] WBC, UA 36 /HPF [facility] Bacteria, UA Rare [facility] Squam Epithel, UA <1 /HPF [facility] Specimen Urine Performing Organization Address City/State/Zipcode Phone Number [place] [phone] [place] [address] [facility] * Urinalysis with Microscopic If Indicated (05/06/2018 2:36 AM CDT) Color, UA Colorless [facility] Clarity, UA Clear [facility] Specific [place], UA 1.003 1.001 - 1.035 [facility] pH, UA 6.5 5.0 - 8.0 [facility] Protein, UA 20 mg/dL (A) Negative [facility] Glucose, UA Negative Negative [facility] Ketones, UA Negative Negative [facility] Bilirubin, UA Negative Negative [facility] Blood, UA Moderate (A) Negative [facility] Nitrite, UA Negative Negative [facility] Leukocytes, UA Large (A) Negative [facility] Urobilinogen, UA 0.2 0.2 - 1.0 mg/dL [facility] Specimen Source [facility] Specimen Urine Performing Organization Address City/State/Zipcode Phone Number [facility] [address] [place] [address] [facility] after 02/09/2018 Insurance Payer Benefit Subscriber ID Type Phone Address Plan / Group [employer] xxxxxxxxxxx [employer] Advance Directives For more information, please contact: [place] [address] Date Inactivated Comments Code Status Date Activated Full Code 09/19/2018 11:59 PM This code status was determined by: Patient 09/19/2018 5:03 PM Full Code 08/24/2018 7:19 PM This code status was determined by: Patient
--- OUTSIDE RECORDS SUMMARY | 2019-02-10 01:53 | XMS REPORT | Encounter Summary ---
Author Organization Unknown Address [address] [place] [address] Phone [phone] Care Team Providers Care Health Physics Technician Name Role Phone Dr. Corky Painter 3 [phone] Lm Beard MD 115 [phone] Javad Cullen 118 [phone] Reason for Visit Right ear pain/problem; headaches; cough / congestion Instructions 1. Upper respiratory infection azithromycin 250 mg tablet Kenalog 40 mg/mL suspension for injection fluticasone 50 mcg/actuation nasal spray,suspension Cheratussin AC 10 mg-100 mg/5 mL oral liquid 2. Vaccination for diphtheria, pertussis, and tetanus Adacel (Tdap Adolesn/Adult)(PF)2 Lf-(2.5-5-3-5)-5 Lf/0.5 mL IM syringe 3. Body mass index 40+ - severely obese aprenda acerca del peso saludable - [learning about healthy weight] ndice de masa corporal: instrucciones de cuidado - [body mass index: care instructions] Discussion Note: None recorded. Plan of Care Reminders Provider Appointments None recorded. Lab None recorded. Referral None recorded. Procedures None recorded. Surgeries None recorded. Imaging None recorded. Medications Name Start Date azithromycin 250 mg tablet TAKE 2 TABLETS (500 MG) BY ORAL ROUTE ONCE DAILY FOR 1 DAY THEN 1 TABLET (250 MG) BY ORAL ROUTE ONCE DAILY FOR 4 DAYS Cheratussin AC 10 mg-100 mg/5 mL oral liquid Take 10 mL every 8 hours by oral route as needed for 5 days. ezetimibe 10 mg tablet Take 1 tablet every day by oral route as directed. fluticasone 50 mcg/actuation nasal spray,suspension [place] 1 spray twice a day by intranasal route as directed for 14 days. Medications Administered None recorded. Vitals Height Weight BMI Blood Pressure 5 ft 3 in 223.2 lbs 39.5 kg/m2 (1) 168/96 mm[Hg] (2) 150/100 mm[Hg] Lab Results None recorded. Allergies Code Code System Name Reaction Severity Status Onset 733 RxNorm Ampicillin Active 178481 RxNorm Zocor Active Problems Name Status Onset Date Source Chronic Kidney Disease Active 11/22/2017 Polycystic Kidney Disease, Adult Type Active 07/10/2018 Unilateral Nephrectomy Active 10/10/2018 Procedures Date Name Performed by Remove Bladder Stone Information not available Kidney Endoscopy Information not available Vaccine List Vaccine Type influenza, unspecified formulation 08/16/2017 07/16/2018 Tdap 12/05/20180.5 mL Social History Smoking Status Never Smoker Past Encounters 12/05/2018 Upper Respiratory Infection; Vaccination for Diphtheria, Pertussis, and Tetanus; Body Mass Index 40+ - Severely Obese Corky Hernandez MD: [address] [place] [address], Ph. History of Present Illness Note:Pt is complaining of runny nose,nasal congestion, sinus pressure, R ear pain, dry cough,sore throat and fever not quantified since 3 days ago. Denies sob, wheezing or chest pain Review of Systems:ROS as noted in the HPI Review of Systems None recorded. Physical Exam General Adult Exam (male) Reported By: Patient Constitutional: General Appearance: healthy-appearing, obese. Level of Distress: NAD. Ambulation: ambulating normally Eyes: Lids and Conjunctivae: non-injected, no discharge. EOM: EOMI ENMT: Ears: TMs clear. Nose: nares non-patent, sinus tenderness, nasal discharge, post nasal drip. Lips, Teeth, and Gums: no mouth or lip ulcers. Oropharynx: moist mucous membranes, no exudates, tonsils not enlarged, erythema Neck: Neck: supple, trachea midline. Lymph Nodes: cervical LAD Lungs: Auscultation: breath sounds normal Cardiovascular: Heart Auscultation: RRR, normal S1, normal S2, no murmurs Neurologic: Gait and Station: normal gait
--- OUTSIDE RECORDS SUMMARY | 2019-02-10 01:54 | XMS REPORT | Encounter Summary ---
Author Organization Unknown Address [address] [place] [address] Phone [phone] Care Team Providers Care Epic Specialist Name Role Phone Dr. Corky Painter 3 [phone] Lm Beard MD 115 [phone] Javad Cullen 118 [phone] Reason for Visit Polycystic kidney disease, adult type; UTI Instructions 1. Abnormal urinalysis urinalysis, dipstick culture, urine 2. Unable to concentrate psychology referral 3. Elevated blood-pressure reading without diagnosis of hypertension presin arterial elevada: instrucciones de cuidado - [elevated blood pressure: care instructions] 4. Low back pain gabapentin 300 mg capsule Discussion Note: None recorded. Plan of Care Reminders Provider Appointments None recorded. Lab Urinalysis, Dipstick 01/11/2019 [facility] [place] Culture, Urine 01/11/2019 [facility] [place] [facility] Referral Psychology Referral 01/11/2019 Procedures None recorded. Surgeries None recorded. Imaging None recorded. Medications Name Start Date ezetimibe 10 mg tablet Take 1 tablet every day by oral route as directed. gabapentin 300 mg capsule Take 1 capsule every day by oral route as needed for 30 days. Medications Administered None recorded. Vitals Height Weight BMI Blood Pressure 5 ft 3 in 233 lbs 41.3 kg/m2 (1) 148/104 mm[Hg] (2) 146/100 mm[Hg] Lab Results Date Name Specimen Result Interpretation Description Value Range Status Address 12/27/2018 Culture, Urine Culture, Urine, Routine see note Final [facility] [place] [facility]: [address] [place] [address], [place] Urinalysis, Dipstick Color Color yellow [place] [place]: [address] [place] Color Appearance hazy [facility]) [place]: [address] [place] Color Glucose negative [place] [facility] [place]: [address] [place] Color Bilirubin negative [facility] [place]: [address] [place] Color Ketones negative [facility] [place]: [address] [place] Color Specific [place] 1.015 [place] [facility] [place]: [address] [place] Color Blood small [place] [place]: [address] [place] Color PH 7.0 [facility] [place]: [address] [place] Color Protein 100 [place] [place]: [address] [place] Color Urobilinogen 0.2 [place] [place]: [address] [place] Color Nitrites negative [place] [place]: [address] [place] Color Leukocytes large [facility] ([facility]) [place]: [address] [place] Allergies Code Code System Name Reaction Severity Status Onset 733 RxNorm Ampicillin Active 197948 RxNorm Zocor Active Problems Name Status Onset Date Source Chronic Kidney Disease Active 11/22/2017 Polycystic Kidney Disease, Adult Type Active 07/10/2018 Unilateral Nephrectomy Active 10/10/2018 Procedures Date Name Performed by Remove Bladder Stone Information not available Kidney Endoscopy Information not available Vaccine List Vaccine Type influenza, unspecified formulation 08/16/2017 07/16/2018 Tdap 12/05/20180.5 mL Social History Smoking Status Never Smoker Past Encounters 01/11/2019 Abnormal Urinalysis; Unable to Concentrate; Elevated Blood-pressure Reading without Diagnosis of Hypertension; Low Back Pain Corky Hernandez MD: [address] [place] [address], Ph. 12/27/2018 Acute Urinary Tract Infection; Body Mass Index 30+ - Obesity; Unilateral Nephrectomy; Hyperlipidemia Landon Garnett MD: [address] [place] [address], Ph. History of Present Illness Note:Complaining of an uncomfortable sensation in the genital area when urinating since 2 days ago. Pt completed 10 days of bactrim 1 week ago. Denies urinary frequency, urgency, hematuria or suprapubic pain.<div>She is also complaining of difficulty focusing and concentrating since a few years ago. Concomitantly, memory loss.</div> Review of Systems Comprehensive General Adult ROS Reported By: Patient Constitutional: Constitutional: no fever Eyes: Eyes: no vision change Cardiovascular: Cardiovascular: no chest pain, no palpitations, no lightheadedness Respiratory: Respiratory: no cough, no wheezing, no shortness of breath Gastrointestinal: Gastrointestinal: no abdominal pain, no nausea, no vomiting, no constipation, no diarrhea Genitourinary: Genitourinary: no incontinence, no difficulty urinating, no hematuria, no increased frequency Musculoskeletal: Musculoskeletal: muscle aches, back pain Neurologic: Neurologic: no loss of consciousness, no headaches Psychiatric: Psych: no depression, no alcohol abuse, no anxiety, no suicidal thoughts Physical Exam General Adult Exam (male) Reported By: Patient Constitutional: General Appearance: healthy-appearing, morbidly obese. Level of Distress: NAD. Ambulation: ambulating normally Psychiatric: Insight: good judgement. Mental Status: active and alert, normal mood, normal affect. Orientation: to time, to place, to person. Memory: recent memory normal, remote memory normal Eyes: Lids and Conjunctivae: non-injected, no discharge ENMT: Lips, Teeth, and Gums: no mouth or lip ulcers. Oropharynx: moist mucous membranes Neck: Neck: supple, trachea midline Lungs: Auscultation: breath sounds normal Cardiovascular: Heart Auscultation: RRR, normal S1, normal S2, no murmurs Abdomen: Inspection and Palpation: soft, non-distended, no tenderness, no guarding, no rebound tenderness, no masses, no CVA tenderness Musculoskeletal:: Motor Strength and Tone: normal, normal tone. Joints, Bones, and Muscles: normal movement of all extremities. Extremities: no edema Neurologic: Gait and Station: normal gait
--- OUTSIDE RECORDS SUMMARY | 2019-02-10 01:54 | XMS REPORT | Encounter Summary ---
Author Organization Unknown Address [address] [place] [address] Phone [phone] Care Team Providers Care Grand Scribe Name Role Phone Dr. Corky Painter 3 [phone] Lm Beard MD 115 [phone] Javad Cullen 118 [phone] Reason for Visit UTI Instructions 1. Acute urinary tract infection urinalysis, dipstick culture, urine Bactrim DS 800 mg-160 mg tablet 2. Body mass index 30+ - obesity aprenda acerca del peso saludable - [learning about healthy weight] ndice de masa corporal: instrucciones de cuidado - [body mass index: care instructions] 3. Unilateral nephrectomy 4. Hyperlipidemia Zetia 10 mg tablet Discussion Note: None recorded. Plan of Care Patient Instructions meds as directed /fluids ++ Reminders Provider Appointments None recorded. Lab Urinalysis, Dipstick 12/27/2018 [facility] Culture, Urine 12/27/[address] [facility] Laboratory Referral None recorded. Procedures None recorded. Surgeries None recorded. Imaging None recorded. Medications Name Start Date alprazolam 0.5 mg tablet Take 1 tablet every day by oral route as needed for 3 days. Bactrim DS 800 mg-160 mg tablet Take 1 tablet every 12 hours by oral route as directed for 10 days. ranitidine 150 mg tablet Take 1 tablet twice a day by oral route as needed for 14 days. Zetia 10 mg tablet Take 1 tablet every day by oral route as directed. Medications Administered None recorded. Vitals Height Weight BMI Blood Pressure 5 ft 3 in 221 lbs 39.1 kg/m2 130/80 mm[Hg] Lab Results Date Name Specimen Result Interpretation Description Value Range Status Address Urinalysis, Dipstick Color Color yellow [facility]: [address] [place] [address], [place] Color Appearance hazy [facility] [place]: [address] [place] Color Glucose negative [facility] ([facility] [place]: [address] [place] Color Bilirubin negative [facility] [place]: [address] [place] Color Ketones negative [facility] [place]: [address] [place] Color Specific [place] 1.015 [facility] [place]: [address] [place] Color Blood small [facility] [place]: [address] [place] Color PH 7.0 [facility] [place]: [address] [place] Color Protein 100 [facility] ([facility]) [place]: [address] [place] Color Urobilinogen 0.2 [facility] ([facility]) [place]: [address] [place] Color Nitrites negative [facility] (p) [place]: [address] [place] Color Leukocytes large [facility] (p) [place]: [address] [place] Allergies Code Code System Name Reaction Severity Status Onset 733 RxNorm Ampicillin Active 510363 RxNorm Zocor Active Problems Name Status Onset Date Source Chronic Kidney Disease Active 11/22/2017 Polycystic Kidney Disease, Adult Type Active 07/10/2018 Unilateral Nephrectomy Active 10/10/2018 Procedures Date Name Performed by Remove Bladder Stone Information not available Kidney Endoscopy Information not available Vaccine List Vaccine Type influenza, unspecified formulation 08/16/2017 07/16/2018 Tdap 12/05/20180.5 mL Social History Smoking Status Never Smoker Past Encounters 12/27/2018 Acute Urinary Tract Infection; Body Mass Index 30+ - Obesity; Unilateral Nephrectomy; Hyperlipidemia Landon Garnett MD: [facility] [place] [address], Ph. 12/10/2018 Nausea; Gastroesophageal Reflux Disease; Anxiety; Body Mass Index 30+ - Obesity; Elevated Blood-pressure Reading without Diagnosis of Hypertension Corky Hernandez MD: [address] [place] [address], Ph. 12/05/2018 Upper Respiratory Infection; Vaccination for Diphtheria, Pertussis, and Tetanus; Body Mass Index 40+ - Severely Obese Corky Hernandez MD: [address] [place] [address], Ph. History of Present Illness UTI Reported By: Patient Note:4 d h/o dysuria/frequency,improved since starting previously prescribed bactrim ds 2 days ago<div>h/o L nephrectomy-esrn/nephrolithiasis</div> Review of Systems:ROS as noted in the HPI Review of Systems None recorded. Physical Exam Brief Abdominal Pain Exam Reported By: Patient Constitutional: General Appearance: well-developed, well-nourished, healthy-appearing, alert, oriented, NAD, mucous membranes moist Cardiovascular: Heart Auscultation: S1 present, S2 present, no murmurs, no click Lungs: Lungs: clear to auscultation bilaterally, no wheezing, no crackles Abdomen: Inspection and Palpation: soft, bowel sounds 4 quadrants, non-distended, RLQ tenderness
--- OUTSIDE RECORDS SUMMARY | 2019-02-10 01:54 | XMS REPORT ---
[facility] Address Unknown Phone Unavailable Care Team Providers Care Cook Chef Name Role Phone REI CRUZ Unavailable Unavailable LINK, SANTOSH IRENE Unavailable Unavailable MARY CORTEZ Unavailable Unavailable Problems This patient has no known problems. Allergies, Adverse Reactions, Alerts This patient has no known allergies or adverse reactions. Medications This patient has no known medications. Results Test Description Test Time Test Comments Text Results Atomic Results Result Comments CT, ABDOMEN 2019-01-23 08:42:00 FINAL REPORT ABDOMINAL AND PELVIS CT DATED [...] No mass, adenopathy or ascites is present. IMPRESSION:1. Status post left nephrectomy.2. Stable staghorn renal stones in the upper pole right kidney and peripheral calcified cystic lesions in the mid and inferior pole right kidney.3. Diverticulosis without diverticulitis. Signed: Jadyn Gonzalez MDReport Verified Date/Time: 01/23/2019 08:42:46 Reading Location: [facility] C013T Transitional Reading Room US CULTURE + SMEAR 2018-09-25 11:16:00 CULTURE (BEAKER) (test zjre=5359) No fungus isolated in 28 days FUNGUS SMEAR (BEAKER) (test vzrv=1470) No fungi seen URINE [id number] 17:52:00* Test Item Value Reference Range Comments CULTURE (BEAKER) (test dxcc=0963) >100,000 col/mL skin ca BASIC METABOLIC [id number] 07:00:00* Test Item Value Reference Range Comments SODIUM (BEAKER) (test sidt=904) 136 meq/L 136-145 POTASSIUM (BEAKER) (test sohy=265) 4.1 meq/L 3.5-5.1 CHLORIDE (BEAKER) (test ahcn=595) 109 meq/L 98-107 CO2 (BEAKER) (test igqr=594) 18 meq/L 22-29 BLOOD UREA NITROGEN (BEAKER) (test krhz=853) 25 mg/dL 7-21 CREATININE (BEAKER) (test xnfe=943) 1.90 mg/dL 0.57-1.25 GLUCOSE RANDOM (BEAKER) (test dohs=465) 96 mg/dL 70-105 CALCIUM (BEAKER) (test tmfs=502) 8.6 mg/dL 8.4-10.2 EGFR (BEAKER) (test poql=4097) 28 mL/min/1.73 sq m ESTIMATED GFR IS NOT ACCURATE CREATININE CLEARANCE IN PREDICTING GLOMERULAR FILTRATION RATE. ESTIMATED GFR IS NOT APPLICABLE FOR DIALYSIS PATIENTS. CBC W/PLT COUNT & AUTO [id number] 06:32:00* Test Item Value Reference Range Comments WHITE BLOOD CELL COUNT (BEAKER) (test dxvn=003) 7.2 K/ L 3.5-10.5 RED BLOOD CELL COUNT (BEAKER) (test rvfl=524) 4.09 M/ L 3.93-5.22 HEMOGLOBIN (BEAKER) (test lrnf=676) 9.9 GM/DL 11.2-15.7 HEMATOCRIT (BEAKER) (test koxi=234) 33.1 % 34.1-44.9 MEAN CORPUSCULAR VOLUME (BEAKER) (test zamy=616) 80.9 fL 79.4-94.8 MEAN CORPUSCULAR HEMOGLOBIN (BEAKER) (test pndt=592) 24.2 pg 25.6-32.2 MEAN CORPUSCULAR HEMOGLOBIN CONC (BEAKER) (test hsiy=258) 29.9 GM/DL 32.2-35.5 RED CELL DISTRIBUTION WIDTH (BEAKER) (test ekqz=071) 15.4 % 11.7-14.4 PLATELET COUNT (BEAKER) (test eihi=144) 244 K/CU MM 150-450 MEAN PLATELET VOLUME (BEAKER) (test crnw=535) 12.0 fL 9.4-12.3 NUCLEATED RED BLOOD CELLS (BEAKER) (test yucb=269) 0 /100 WBC 0-0 NEUTROPHILS RELATIVE PERCENT (BEAKER) (test auft=837) 70 % LYMPHOCYTES RELATIVE PERCENT (BEAKER) (test gyxz=157) 17 % MONOCYTES RELATIVE PERCENT (BEAKER) (test uwsj=981) 9 % EOSINOPHILS RELATIVE PERCENT (BEAKER) (test silx=990) 4 % BASOPHILS RELATIVE PERCENT (BEAKER) (test lnfj=827) 1 % NEUTROPHILS ABSOLUTE COUNT (BEAKER) (test iqdx=561) 5.07 K/ L 1.56-6.13 LYMPHOCYTES ABSOLUTE COUNT (BEAKER) (test gehx=135) 1.19 K/ L 1.18-3.74 MONOCYTES ABSOLUTE COUNT (BEAKER) (test ayfk=617) 0.62 K/ L 0.24-0.36 EOSINOPHILS ABSOLUTE COUNT (BEAKER) (test wcgq=389) 0.27 K/ L 0.04-0.36 BASOPHILS ABSOLUTE COUNT (BEAKER) (test akck=497) 0.05 K/ L 0.01-0.08 IMMATURE GRANULOCYTES-RELATIVE PERCENT (BEAKER) (test aiyd=8683) 0 % 0-1 BASIC METABOLIC [id number] 06:43:00* Test Item Value Reference Range Comments SODIUM (BEAKER) (test uecf=699) 139 meq/L 136-145 POTASSIUM (BEAKER) (test fpvf=894) 4.3 meq/L 3.5-5.1 CHLORIDE (BEAKER) (test gshz=425) 112 meq/L 98-107 CO2 (BEAKER) (test zfnp=558) 21 meq/L 22-29 BLOOD UREA NITROGEN (BEAKER) (test nmdj=602) 26 mg/dL 7-21 CREATININE (BEAKER) (test logo=933) 1.92 mg/dL 0.57-1.25 GLUCOSE RANDOM (BEAKER) (test ohhr=578) 96 mg/dL 70-105 CALCIUM (BEAKER) (test eptv=144) 8.5 mg/dL 8.4-10.2 EGFR (BEAKER) (test twvf=1512) 28 mL/min/1.73 sq m ESTIMATED GFR IS NOT ACCURATE CREATININE CLEARANCE IN PREDICTING GLOMERULAR FILTRATION RATE. ESTIMATED GFR IS NOT APPLICABLE FOR DIALYSIS PATIENTS. CBC W/PLT COUNT & AUTO [id number] 06:14:00* Test Item Value Reference Range Comments WHITE BLOOD CELL COUNT (BEAKER) (test kgau=820) 7.0 K/ L 3.5-10.5 RED BLOOD CELL COUNT (BEAKER) (test fiio=114) 4.00 M/ L 3.93-5.22 HEMOGLOBIN (BEAKER) (test uvtv=267) 9.6 GM/DL 11.2-15.7 HEMATOCRIT (BEAKER) (test ksao=811) 31.5 % 34.1-44.9 MEAN CORPUSCULAR VOLUME (BEAKER) (test llak=854) 78.8 fL 79.4-94.8 MEAN CORPUSCULAR HEMOGLOBIN (BEAKER) (test accf=942) 24.0 pg 25.6-32.2 MEAN CORPUSCULAR HEMOGLOBIN CONC (BEAKER) (test mqhj=844) 30.5 GM/DL 32.2-35.5 RED CELL DISTRIBUTION WIDTH (BEAKER) (test eciw=961) 15.5 % 11.7-14.4 PLATELET COUNT (BEAKER) (test iccj=423) 266 K/CU MM 150-450 MEAN PLATELET VOLUME (BEAKER) (test cduv=405) 10.6 fL 9.4-12.3 NUCLEATED RED BLOOD CELLS (BEAKER) (test kolu=931) 0 /100 WBC 0-0 NEUTROPHILS RELATIVE PERCENT (BEAKER) (test opbj=894) 66 % LYMPHOCYTES RELATIVE PERCENT (BEAKER) (test kzel=392) 20 % MONOCYTES RELATIVE PERCENT (BEAKER) (test dsno=367) 10 % EOSINOPHILS RELATIVE PERCENT (BEAKER) (test tcdt=323) 4 % BASOPHILS RELATIVE PERCENT (BEAKER) (test eegf=262) 1 % NEUTROPHILS ABSOLUTE COUNT (BEAKER) (test gssv=130) 4.63 K/ L 1.56-6.13 LYMPHOCYTES ABSOLUTE COUNT (BEAKER) (test bdqm=652) 1.41 K/ L 1.18-3.74 MONOCYTES ABSOLUTE COUNT (BEAKER) (test nqmd=578) 0.67 K/ L 0.24-0.36 EOSINOPHILS ABSOLUTE COUNT (BEAKER) (test xysh=428) 0.26 K/ L 0.04-0.36 BASOPHILS ABSOLUTE COUNT (BEAKER) (test wxgq=056) 0.04 K/ L 0.01-0.08 IMMATURE GRANULOCYTES-RELATIVE PERCENT (BEAKER) (test haoy=7970) 0 % 0-1 CT, [id number] 22:34:00Reason for exam:->abdominal painWhat is the patient's sedation requirement?->No SedationIs the patient ?->NoFINAL REPORT EXAM: CT chest CLINICAL HISTORY: Left lower quadrant pain TECHNIQUE: Helical images of the chest were obtained without contr ast DOSE REDUCTION: The exams was performed according to the departmental dose- optimization program which includes automated exposure control, adjustment of th e mA and/or kV according to patient size and/or use of iterative reconstruction technique. FINDINGS: Linear opacities are noted in bilateral lung bases which ma y represent scarring versus atelectasis. There is no evidence of pleural effusio n. The cardiac size is within normal limits. In the lateral margin of the left b reast, a 3.2 cm density is partially visualized. Although this may represent foc al glandular tissue, correlation with mammogram is recommended. The liver, splee n, pancreas, adrenal glands, and gallbladder are unremarkable. The left kidney w as not visualized which may represent prior resection. Staghorn calculus is seen in the upper and interpolar region right kidney. The small and large bowels are normal in caliber without evidence of obstruction. Moderate retained feces are noted in the colon. The bladder appears unremarkable. The uterus appears mildly prominent, however, no focal mass is detected on the noncontrast images. There i s no evidence of lymphadenopathy or free fluid. The aorta and IVC are normal in caliber. IMPRESSION: 1. Staghorn calculus involving the right kidney. 2. The lef t kidney is absent which may represent postoperative changes. 3. No CT evidence of acute diverticulitis disease. 4. Partially visualized focal density in the le ft lateral breast which may represent glandular tissue. However, correlation wit h mammogram is recommended. Signed: Marizol Dan MDReport Verified Date/Time: 09/19/2018 22:34:44 Reading Location: [address] Consult Reading Room E lectronically signed by: MARIZOL DAN M.D. on 09/19/2018 10:34 PM URINALYSIS W/ [id number] 21:29:00* Test Item Value Reference Range Comments COLOR (BEAKER) (test dpql=541) Light Yellow CLARITY (BEAKER) (test azjl=839) Hazy SPECIFIC GRAVITY UA (BEAKER) (test otxl=446) 1.011 1.001-1.035 PH UA (BEAKER) (test zbya=238) 6.0 5.0-8.0 PROTEIN UA (BEAKER) (test qijx=252) 50 mg/dL Negative GLUCOSE UA (BEAKER) (test zqcw=491) Negative Negative KETONES UA (BEAKER) (test zmlx=824) Negative Negative BILIRUBIN UA (BEAKER) (test qjcb=813) Negative Negative BLOOD UA (BEAKER) (test ssbr=067) Small Negative NITRITE UA (BEAKER) (test imln=630) Negative Negative LEUKOCYTE ESTERASE UA (BEAKER) (test wvpr=257) Large Negative UROBILINOGEN UA (BEAKER) (test oaiz=422) 0.2 mg/dL 0.2-1.0 RBC UA (BEAKER) (test zrrs=574) 13 /HPF WBC UA (BEAKER) (test vygm=001) > /HPF BACTERIA (BEAKER) (test fcaj=456) Rare SQUAMOUS EPITHELIAL (BEAKER) (test glum=066) 1 /HPF SOURCE(BEAKER) (test vmzr=6660) Urine, Clean Catch SCREEN, [id number] 21:19:00* Test Item Value Reference Range Comments TEST URINE (BEAKER) (test yznc=598) Negative HEPATIC FUNCTION [id number] 20:59:00* Test Item Value Reference Range Comments TOTAL PROTEIN (BEAKER) (test gvra=279) 7.7 gm/dL 6.0-8.3 ALBUMIN (BEAKER) (test dmtx=9656) 4.0 g/dL 3.5-5.0 BILIRUBIN TOTAL (BEAKER) (test ezku=717) 0.4 mg/dL 0.2-1.2 BILIRUBIN DIRECT (BEAKER) (test aygs=010) 0.1 mg/dL 0.1-0.5 ALKALINE PHOSPHATASE (BEAKER) (test dxnb=601) 80 U/L 40-150 AST (SGOT) (BEAKER) (test nqyk=157) 11 U/L 5-34 ALT (SGPT) (BEAKER) (test pthp=958) < U/L 6-55 BASIC METABOLIC [id number] 20:59:00* Test Item Value Reference Range Comments SODIUM (BEAKER) (test sedo=457) 136 meq/L 136-145 POTASSIUM (BEAKER) (test aucr=836) 4.0 meq/L 3.5-5.1 CHLORIDE (BEAKER) (test lkxw=615) 107 meq/L 98-107 CO2 (BEAKER) (test owmv=330) 19 meq/L 22-29 BLOOD UREA NITROGEN (BEAKER) (test fnby=644) 28 mg/dL 7-21 CREATININE (BEAKER) (test irfi=921) 2.08 mg/dL 0.57-1.25 GLUCOSE RANDOM (BEAKER) (test cnbo=418) 168 mg/dL 70-105 CALCIUM (BEAKER) (test cffm=398) 8.9 mg/dL 8.4-10.2 EGFR (BEAKER) (test lmwz=9349) 25 mL/min/1.73 sq m ESTIMATED GFR IS NOT ACCURATE CREATININE CLEARANCE IN PREDICTING GLOMERULAR FILTRATION RATE. ESTIMATED GFR IS NOT APPLICABLE FOR DIALYSIS PATIENTS. CBC W/PLT COUNT & AUTO [id number] 20:39:00* Test Item Value Reference Range Comments WHITE BLOOD CELL COUNT (BEAKER) (test qsoc=923) 8.4 K/ L 3.5-10.5 RED BLOOD CELL COUNT (BEAKER) (test zczq=957) 4.58 M/ L 3.93-5.22 HEMOGLOBIN (BEAKER) (test vsie=525) 10.9 GM/DL 11.2-15.7 HEMATOCRIT (BEAKER) (test wlja=065) 35.7 % 34.1-44.9 MEAN CORPUSCULAR VOLUME (BEAKER) (test zrmg=109) 77.9 fL 79.4-94.8 MEAN CORPUSCULAR HEMOGLOBIN (BEAKER) (test owtr=516) 23.8 pg 25.6-32.2 MEAN CORPUSCULAR HEMOGLOBIN CONC (BEAKER) (test szln=810) 30.5 GM/DL 32.2-35.5 RED CELL DISTRIBUTION WIDTH (BEAKER) (test okhg=857) 15.5 % 11.7-14.4 PLATELET COUNT (BEAKER) (test cxer=099) 333 K/CU MM 150-450 MEAN PLATELET VOLUME (BEAKER) (test zdsz=532) 10.8 fL 9.4-12.3 NUCLEATED RED BLOOD CELLS (BEAKER) (test luub=158) 0 /100 WBC 0-0 NEUTROPHILS RELATIVE PERCENT (BEAKER) (test vkuq=938) 71 % LYMPHOCYTES RELATIVE PERCENT (BEAKER) (test xdeg=717) 17 % MONOCYTES RELATIVE PERCENT (BEAKER) (test pxae=540) 7 % EOSINOPHILS RELATIVE PERCENT (BEAKER) (test jyqm=014) 4 % BASOPHILS RELATIVE PERCENT (BEAKER) (test fyqg=825) 1 % NEUTROPHILS ABSOLUTE COUNT (BEAKER) (test tqxo=831) 6.00 K/ L 1.56-6.13 LYMPHOCYTES ABSOLUTE COUNT (BEAKER) (test fuqb=751) 1.46 K/ L 1.18-3.74 MONOCYTES ABSOLUTE COUNT (BEAKER) (test wnvy=319) 0.57 K/ L 0.24-0.36 EOSINOPHILS ABSOLUTE COUNT (BEAKER) (test krxo=992) 0.31 K/ L 0.04-0.36 BASOPHILS ABSOLUTE COUNT (BEAKER) (test hfct=684) 0.06 K/ L 0.01-0.08 IMMATURE GRANULOCYTES-RELATIVE PERCENT (BEAKER) (test wotg=9825) 1 % 0-1 TISSUE [id number] 12:06:00Surgical Pathology Report Case: [id number] Authorizing Provider: Irene Beard MD Collected: 08/24/2018 1620 Ordering Location: [facility] PERIOPERATIVE Received: 08/27/2018 0820 SERVICES Pathologist: Julius Coffey MD Specimen: Kidney, Left PART A LEFT KIDNEY, NEPHRECTOMY:END STAGE KIDNEY DISEASE WITH NEPHROLITHIASIS AND ASSOCIATED DILATIONAL CHANGES.NEGATIVE FOR CARCINOMA.MULTIPLE REACTIVE LYMPH NODES. Signing Pathologist Direct Phone Line: [phone] signed by Julius Coffey MD on 08/29/2018 at 12:06 [id number] kidney Left kidney Received fresh labeled "kidney, left" is a 1,327 gm, 22.0 x 17.0 x 8.0 cm, left [...] gaston-white and smooth. No discrete masses are identified.The surrounding renal parenchyma is pale-aguilera, dense and unremarkable. Section code: A1, parallel ureteral and vascular resection margins; A2-A11, in home sales representative sections of kidney; A12-A14, multiple intact lymph nodes. DB/ewPERFORMEDANAEROBIC CULTURE 2018-08-28 03:40:00* Test Item Value Reference Range Comments CULTURE (BEAKER) (test jwbc=9355) No anaerobes isolated SURGICALLY OBTAINED CULTURE + GRAM [id number] 11:54:00* Test Item Value Reference Range Comments CULTURE (BEAKER) (test uheh=8246) No growth GRAM STAIN RESULT (BEAKER) (test sbsi=0305) <1+ WBCs GRAM STAIN RESULT (BEAKER) (test bzym=73626) No organisms seen BASIC METABOLIC [id number] 12:51:00* Test Item Value Reference Range Comments SODIUM (BEAKER) (test qhuj=735) 137 meq/L 136-145 POTASSIUM (BEAKER) (test tsoy=697) 3.6 meq/L 3.5-5.1 CHLORIDE (BEAKER) (test qphf=413) 111 meq/L 98-107 CO2 (BEAKER) (test zfej=542) 20 meq/L 22-29 BLOOD UREA NITROGEN (BEAKER) (test mtxz=394) 18 mg/dL 7-21 CREATININE (BEAKER) (test xmjv=570) 1.77 mg/dL 0.57-1.25 GLUCOSE RANDOM (BEAKER) (test saeo=590) 86 mg/dL 70-105 CALCIUM (BEAKER) (test dxth=892) 8.0 mg/dL 8.4-10.2 EGFR (BEAKER) (test hmnn=0418) 31 mL/min/1.73 sq m ESTIMATED GFR IS NOT ACCURATE CREATININE CLEARANCE IN PREDICTING GLOMERULAR FILTRATION RATE. ESTIMATED GFR IS NOT APPLICABLE FOR DIALYSIS PATIENTS. BASIC METABOLIC [id number] 06:55:00* Test Item Value Reference Range Comments SODIUM (BEAKER) (test assd=747) 135 meq/L 136-145 POTASSIUM (BEAKER) (test ytmk=324) 4.1 meq/L 3.5-5.1 CHLORIDE (BEAKER) (test ixtm=418) 112 meq/L 98-107 CO2 (BEAKER) (test otas=426) 18 meq/L 22-29 BLOOD UREA NITROGEN (BEAKER) (test zexj=086) 19 mg/dL 7-21 CREATININE (BEAKER) (test ubgt=087) 1.77 mg/dL 0.57-1.25 GLUCOSE RANDOM (BEAKER) (test rwdl=117) 89 mg/dL 70-105 CALCIUM (BEAKER) (test anir=273) 7.6 mg/dL 8.4-10.2 EGFR (BEAKER) (test rfmo=6382) 31 mL/min/1.73 sq m ESTIMATED GFR IS NOT ACCURATE CREATININE CLEARANCE IN PREDICTING GLOMERULAR FILTRATION RATE. ESTIMATED GFR IS NOT APPLICABLE FOR DIALYSIS PATIENTS. CBC W/PLT COUNT & AUTO [id number] 06:05:00* Test Item Value Reference Range Comments WHITE BLOOD CELL COUNT (BEAKER) (test fkyq=175) 7.4 K/ L 3.5-10.5 RED BLOOD CELL COUNT (BEAKER) (test icsj=599) 3.58 M/ L 3.93-5.22 HEMOGLOBIN (BEAKER) (test rfch=607) 9.0 GM/DL 11.2-15.7 HEMATOCRIT (BEAKER) (test dvda=998) 29.4 % 34.1-44.9 MEAN CORPUSCULAR VOLUME (BEAKER) (test gssk=477) 82.1 fL 79.4-94.8 MEAN CORPUSCULAR HEMOGLOBIN (BEAKER) (test rjsj=343) 25.1 pg 25.6-32.2 MEAN CORPUSCULAR HEMOGLOBIN CONC (BEAKER) (test ahdf=090) 30.6 GM/DL 32.2-35.5 RED CELL DISTRIBUTION WIDTH (BEAKER) (test rmka=086) 17.2 % 11.7-14.4 PLATELET COUNT (BEAKER) (test vpag=440) 191 K/CU MM 150-450 MEAN PLATELET VOLUME (BEAKER) (test blfy=098) 10.5 fL 9.4-12.3 NUCLEATED RED BLOOD CELLS (BEAKER) (test qlqs=125) 0 /100 WBC 0-0 NEUTROPHILS RELATIVE PERCENT (BEAKER) (test vbwz=804) 74 % LYMPHOCYTES RELATIVE PERCENT (BEAKER) (test pwrf=324) 14 % MONOCYTES RELATIVE PERCENT (BEAKER) (test afum=151) 9 % EOSINOPHILS RELATIVE PERCENT (BEAKER) (test gfjn=722) 2 % BASOPHILS RELATIVE PERCENT (BEAKER) (test kogx=006) 0 % NEUTROPHILS ABSOLUTE COUNT (BEAKER) (test gnrd=219) 5.44 K/ L 1.56-6.13 LYMPHOCYTES ABSOLUTE COUNT (BEAKER) (test txqz=028) 1.06 K/ L 1.18-3.74 MONOCYTES ABSOLUTE COUNT (BEAKER) (test bwpx=521) 0.67 K/ L 0.24-0.36 EOSINOPHILS ABSOLUTE COUNT (BEAKER) (test jptp=132) 0.14 K/ L 0.04-0.36 BASOPHILS ABSOLUTE COUNT (BEAKER) (test adon=257) 0.03 K/ L 0.01-0.08 IMMATURE GRANULOCYTES-RELATIVE PERCENT (BEAKER) (test ninx=7342) 0 % 0-1 BASIC METABOLIC [id number] 09:42:00* Test Item Value Reference Range Comments SODIUM (BEAKER) (test rvhb=206) 140 meq/L 136-145 POTASSIUM (BEAKER) (test libj=098) 4.1 meq/L 3.5-5.1 CHLORIDE (BEAKER) (test avoa=177) 117 meq/L 98-107 CO2 (BEAKER) (test rjtn=286) 15 meq/L 22-29 BLOOD UREA NITROGEN (BEAKER) (test mdxf=143) 21 mg/dL 7-21 CREATININE (BEAKER) (test zvil=439) 1.62 mg/dL 0.57-1.25 GLUCOSE RANDOM (BEAKER) (test grfr=744) 129 mg/dL 70-105 CALCIUM (BEAKER) (test hhxk=337) 7.6 mg/dL 8.4-10.2 EGFR (BEAKER) (test kbxw=9769) 34 mL/min/1.73 sq m ESTIMATED GFR IS NOT ACCURATE CREATININE CLEARANCE IN PREDICTING GLOMERULAR FILTRATION RATE. ESTIMATED GFR IS NOT APPLICABLE FOR DIALYSIS PATIENTS. CBC W/PLT COUNT & AUTO [id number] 06:05:00* Test Item Value Reference Range Comments WHITE BLOOD CELL COUNT (BEAKER) (test zjzw=490) 10.8 K/ L 3.5-10.5 RED BLOOD CELL COUNT (BEAKER) (test xtvp=243) 3.90 M/ L 3.93-5.22 HEMOGLOBIN (BEAKER) (test dzxq=169) 9.5 GM/DL 11.2-15.7 HEMATOCRIT (BEAKER) (test eloz=362) 31.8 % 34.1-44.9 MEAN CORPUSCULAR VOLUME (BEAKER) (test lann=324) 81.5 fL 79.4-94.8 MEAN CORPUSCULAR HEMOGLOBIN (BEAKER) (test whur=148) 24.4 pg 25.6-32.2 MEAN CORPUSCULAR HEMOGLOBIN CONC (BEAKER) (test ifwq=634) 29.9 GM/DL 32.2-35.5 RED CELL DISTRIBUTION WIDTH (BEAKER) (test wmtr=616) 17.0 % 11.7-14.4 PLATELET COUNT (BEAKER) (test ivdj=356) 224 K/CU MM 150-450 MEAN PLATELET VOLUME (BEAKER) (test jtpr=244) 10.8 fL 9.4-12.3 NUCLEATED RED BLOOD CELLS (BEAKER) (test xdmy=002) 0 /100 WBC 0-0 NEUTROPHILS RELATIVE PERCENT (BEAKER) (test acsh=061) 86 % LYMPHOCYTES RELATIVE PERCENT (BEAKER) (test ugit=441) 6 % MONOCYTES RELATIVE PERCENT (BEAKER) (test tosc=437) 8 % EOSINOPHILS RELATIVE PERCENT (BEAKER) (test kdys=053) 0 % BASOPHILS RELATIVE PERCENT (BEAKER) (test xgkt=883) 0 % NEUTROPHILS ABSOLUTE COUNT (BEAKER) (test nvxp=156) 9.33 K/ L 1.56-6.13 LYMPHOCYTES ABSOLUTE COUNT (BEAKER) (test ohtg=656) 0.64 K/ L 1.18-3.74 MONOCYTES ABSOLUTE COUNT (BEAKER) (test sapl=494) 0.81 K/ L 0.24-0.36 EOSINOPHILS ABSOLUTE COUNT (BEAKER) (test zmnw=979) 0.01 K/ L 0.04-0.36 BASOPHILS ABSOLUTE COUNT (BEAKER) (test sxka=035) 0.01 K/ L 0.01-0.08 IMMATURE GRANULOCYTES-RELATIVE PERCENT (BEAKER) (test ywrc=4375) 0 % 0-1 BASIC METABOLIC [id number] 18:13:00* Test Item Value Reference Range Comments SODIUM (BEAKER) (test hgfw=748) 137 meq/L 136-145 POTASSIUM (BEAKER) (test nzxm=036) 4.6 meq/L 3.5-5.1 CHLORIDE (BEAKER) (test zolk=752) 116 meq/L 98-107 CO2 (BEAKER) (test dkok=129) 15 meq/L 22-29 BLOOD UREA NITROGEN (BEAKER) (test uqju=108) 24 mg/dL 7-21 CREATININE (BEAKER) (test fqgf=830) 1.55 mg/dL 0.57-1.25 GLUCOSE RANDOM (BEAKER) (test eqgx=574) 153 mg/dL 70-105 CALCIUM (BEAKER) (test oryu=129) 7.5 mg/dL 8.4-10.2 EGFR (BEAKER) (test yjre=7210) 36 mL/min/1.73 sq m ESTIMATED GFR IS NOT ACCURATE CREATININE CLEARANCE IN PREDICTING GLOMERULAR FILTRATION RATE. ESTIMATED GFR IS NOT APPLICABLE FOR DIALYSIS PATIENTS. HEMOGLOBIN AND [id number] 17:54:00* Test Item Value Reference Range Comments HEMOGLOBIN (BEAKER) (test ieej=952) 9.6 GM/DL 11.2-15.7 HEMATOCRIT (BEAKER) (test rvbq=934) 31.2 % 34.1-44.9 B-TYPE NATRIURETIC FACTOR (BNP)2018-05-06 06:08:00* Test Item Value Reference Range Comments B-TYPE NATRIURETIC PEPTIDE (BEAKER) (test rhdf=515) 18 pg/mL 0-100 TROPONIN [id number] 06:07:00* Test Item Value Reference Range Comments TROPONIN I (BEAKER) (test mjyi=016) < ng/mL 0.00-0.03 Troponin I (TnI) levels must be interpreted in the context of the presenting sym ptoms and the clinical findings. Elevated TnI levels indicate myocardial damage, but are not specific for ischemic heart disease. Elevated TnI levels are seen in patients with other cardiac conditions (including myocarditis and congestive h eart failure), and slight TnI elevations occur in patients with other conditions , including sepsis, renal failure, acidosis, acute neurological disease, and per sistent tachyarrhythmia.[id number] 06:01:00* Test Item Value Reference Range Comments MAGNESIUM (BEAKER) (test rxov=115) 2.0 mg/dL 1.6-2.6 COMPREHENSIVE METABOLIC [id number] 06:01:00* Test Item Value Reference Range Comments TOTAL PROTEIN (BEAKER) (test isjs=611) 7.5 gm/dL 6.0-8.3 ALBUMIN (BEAKER) (test sapu=4786) 3.8 g/dL 3.5-5.0 ALKALINE PHOSPHATASE (BEAKER) (test fyyu=313) 84 U/L 40-150 BILIRUBIN TOTAL (BEAKER) (test roqx=712) 0.3 mg/dL 0.2-1.2 SODIUM (BEAKER) (test sxco=230) 135 meq/L 136-145 POTASSIUM (BEAKER) (test fzbo=402) 3.9 meq/L 3.5-5.1 CHLORIDE (BEAKER) (test qesn=083) 107 meq/L 98-107 CO2 (BEAKER) (test pufc=682) 19 meq/L 22-29 BLOOD UREA NITROGEN (BEAKER) (test rlhh=757) 26 mg/dL 7-21 CREATININE (BEAKER) (test sgck=189) 1.49 mg/dL 0.57-1.25 GLUCOSE RANDOM (BEAKER) (test qxgz=427) 111 mg/dL 70-105 CALCIUM (BEAKER) (test imvr=771) 9.2 mg/dL 8.4-10.2 AST (SGOT) (BEAKER) (test qwct=665) 15 U/L 5-34 ALT (SGPT) (BEAKER) (test pcvi=506) 12 U/L 6-55 EGFR (BEAKER) (test spgk=4876) 38 mL/min/1.73 sq m ESTIMATED GFR IS NOT ACCURATE CREATININE CLEARANCE IN PREDICTING GLOMERULAR FILTRATION RATE. ESTIMATED GFR IS NOT APPLICABLE FOR DIALYSIS PATIENTS. [id number] 06:01:00* Test Item Value Reference Range Comments LIPASE (BEAKER) (test jvym=505) 19 U/L 8-78 URINALYSIS [id number] 03:39:00* Test Item Value Reference Range Comments RBC UA (BEAKER) (test oueb=799) 16 /HPF WBC UA (BEAKER) (test erwz=079) 36 /HPF BACTERIA (BEAKER) (test nwcl=320) Rare SQUAMOUS EPITHELIAL (BEAKER) (test hfmh=157) < /HPF URINALYSIS WITH MICROSCOPIC IF [id number] 03:38:00* Test Item Value Reference Range Comments COLOR (BEAKER) (test ciog=804) Colorless CLARITY (BEAKER) (test rjkp=867) Clear SPECIFIC GRAVITY UA (BEAKER) (test dumb=845) 1.003 1.001-1.035 PH UA (BEAKER) (test ubbb=173) 6.5 5.0-8.0 PROTEIN UA (BEAKER) (test uhri=541) 20 mg/dL Negative GLUCOSE UA (BEAKER) (test egec=220) Negative Negative KETONES UA (BEAKER) (test ptyi=181) Negative Negative BILIRUBIN UA (BEAKER) (test xjfi=709) Negative Negative BLOOD UA (BEAKER) (test nnve=559) Moderate Negative NITRITE UA (BEAKER) (test gpza=727) Negative Negative LEUKOCYTE ESTERASE UA (BEAKER) (test pbzc=633) Large Negative UROBILINOGEN UA (BEAKER) (test oscm=761) 0.2 mg/dL 0.2-1.0 SOURCE(BEAKER) (test hhig=3298) RAD, CHEST, 1 VIEW, NON [id number] 02:51:00Reason for exam:->chest painIs the patient ?->UnknownShould this be performed at the bedside?->YesFINAL REPORT RAD, CHEST, 1 VIEW, NON DEPT INDICATION: chest pain COMPARISON: None TECHNIQUE: Single frontal view of the chest. IMPRESSION :Low lung volumes.Cardiomediastinal silhouette within normal limits.No overt con solidative or congestive change.No acute osseous abnormality. Signed: Carolyn Nunes MDReport Verified Date/Time: 05/06/2018 02:51:24 Reading Location: [address] Reading Room W/PLT COUNT & AUTO [id number] 02:48:00* Test Item Value Reference Range Comments WHITE BLOOD CELL COUNT (BEAKER) (test qwzz=394) 8.2 K/ L 3.5-10.5 RED BLOOD CELL COUNT (BEAKER) (test hiei=485) 5.00 M/ L 3.93-5.22 HEMOGLOBIN (BEAKER) (test fxja=465) 11.8 GM/DL 11.2-15.7 HEMATOCRIT (BEAKER) (test fjru=732) 39.5 % 34.1-44.9 MEAN CORPUSCULAR VOLUME (BEAKER) (test wffm=185) 79.0 fL 79.4-94.8 MEAN CORPUSCULAR HEMOGLOBIN (BEAKER) (test wdfc=363) 23.6 pg 25.6-32.2 MEAN CORPUSCULAR HEMOGLOBIN CONC (BEAKER) (test lhxy=441) 29.9 GM/DL 32.2-35.5 RED CELL DISTRIBUTION WIDTH (BEAKER) (test vrcq=363) 16.8 % 11.7-14.4 PLATELET COUNT (BEAKER) (test ospm=721) 322 K/CU MM 150-450 MEAN PLATELET VOLUME (BEAKER) (test vyud=697) 10.8 fL 9.4-12.3 NUCLEATED RED BLOOD CELLS (BEAKER) (test qxvc=675) 0 /100 WBC 0-0 NEUTROPHILS RELATIVE PERCENT (BEAKER) (test izey=620) 66 % LYMPHOCYTES RELATIVE PERCENT (BEAKER) (test whew=352) 20 % MONOCYTES RELATIVE PERCENT (BEAKER) (test wtqg=826) 10 % EOSINOPHILS RELATIVE PERCENT (BEAKER) (test sgfe=614) 4 % BASOPHILS RELATIVE PERCENT (BEAKER) (test lexn=272) 1 % NEUTROPHILS ABSOLUTE COUNT (BEAKER) (test cpqx=768) 5.33 K/ L 1.56-6.13 LYMPHOCYTES ABSOLUTE COUNT (BEAKER) (test nukw=472) 1.61 K/ L 1.18-3.74 MONOCYTES ABSOLUTE COUNT (BEAKER) (test ycss=988) 0.81 K/ L 0.24-0.36 EOSINOPHILS ABSOLUTE COUNT (BEAKER) (test vesu=486) 0.33 K/ L 0.04-0.36 BASOPHILS ABSOLUTE COUNT (BEAKER) (test thcr=324) 0.05 K/ L 0.01-0.08 IMMATURE GRANULOCYTES-RELATIVE PERCENT (BEAKER) (test bsbu=[id number]) 0 % 0-1
[2019-02-10] MEDS ORDERED: KETOROLAC TROMETHAMINE 30 MG/ML VIAL IV STA (02:22)
[2019-02-10 03:07] LABS: BASOPHILS % 0.4 % (0.0-1.0); EOSINOPHILS # (AUTO) 0.4 (0.0-0.4); EOSINOPHILS % 3.9 % (0.0-6.0); HEMATOCRIT 34.7 % (34.2-44.1); HEMOGLOBIN 10.9 g/dL (12.0-16.0); LYMPHOCYTES # (AUTO) 1.5 (1.0-3.2); LYMPHOCYTES % 16.3 % (18.0-39.1); MEAN CORPUSCULAR HGB CONC 31.4 g/dL (31-35); MEAN CORPUSCULAR VOLUME 76.4 fL (81-99); MONOCYTES # (AUTO) 0.8 (0.2-0.8); MONOCYTES % 8.7 % (4.4-11.3); NEUTROPHILS # (AUTO) 6.6 (2.1-6.9); NEUTROPHILS % 70.5 % (38.7-80.0); PLATELET COUNT 281 x10e3/uL (140-360); RED BLOOD COUNT 4.54 x10e6/uL (3.6-5.1); RED CELL DISTRIBUTION WIDTH 16.6 % (11.7-14.4)
[2019-02-10 03:26] LABS: ALBUMIN 3.2 g/dL (3.5-5.0); ALBUMIN/GLOBULIN RATIO 0.8 (0.8-2.0); ANION GAP 13.6 mmol/L (8-16); CALCIUM 8.9 mg/dL (8.4-10.2); CREATININE, SERUM 1.54 mg/dL (0.57-1.11); POTASSIUM 3.6 mmol/L (3.5-5.1)
[2019-02-10 03:32] LABS: CREATINE KINASE MB 0.6 ng/mL (0-5.0)
--- NOTE | 2019-02-10 03:35 | Diagnostic Imaging Report ---
EXAMINATION: CHEST SINGLE (PORTABLE) INDICATION: CHEST PAIN COMPARISON: None available FINDINGS: TUBES and LINES: None. LUNGS: Bilateral low lung volumes. Bibasilar platelike atelectasis. Lungs are clear. There is no evidence of pneumonia or pulmonary edema. PLEURA: No pleural effusion or pneumothorax. HEART AND MEDIASTINUM: The cardiomediastinal silhouette is unremarkable. BONES AND SOFT TISSUES: No acute osseous lesion. UPPER ABDOMEN: No free air under the diaphragm. IMPRESSION: Bibasilar platelike atelectasis. Signed by: Dr. Deng Ferris M.D. on 02/10/2019 3:32 AM
[2019-02-10 04:11] VITALS: BP 145/87
== END 2019-02-10 04:21 | disposition home or self-care (01) ==
LOC: ER 01:50
DX: R07.89 Other chest pain (principal); M25.512 Pain in left shoulder; I10 Essential (primary) hypertension; E78.5 Hyperlipidemia, unspecified; F41.9 Anxiety disorder, unspecified
CPT/HCPCS: 36415; 71045; 80053; 82550; 82553; 84484; 85025; 93005; 99284; J1885

== ENCOUNTER 2025-02-18 06:06 | Observation (INO) | payer OTHER ==
[~2025-02-18] VITALS: Ht 162.6 cm; Wt 106.6 kg
[2025-02-18] VITALS (11 sets, daily range): BP systolic 141–159; BP diastolic 84–94; PULSE 86–95; RESP 18–20; TEMP 97.7–99.9; O2SAT 94–98
[2025-02-18] MEDS ORDERED: ONDANSETRON HCL INJ 2MG/ML 2ML 2 MG/ML VIAL IV PRN ×2 (06:30→07:30)
[2025-02-18 06:55] LABS: BASOPHILS % 0.2 % (0.0-1.0); EOSINOPHILS # (AUTO) 0.2 (0.0-0.4); HEMOGLOBIN 13.1 g/dL (12.0-16.0); LYMPHOCYTES # (AUTO) 0.4 (1.0-3.2); LYMPHOCYTES % 4.9 % (18.0-39.1); MEAN CORPUSCULAR HEMOGLOBIN 28.8 pg (28-32); MEAN CORPUSCULAR HGB CONC 33.6 g/dL (31-35); MEAN CORPUSCULAR VOLUME 85.7 fL (81-99); MONOCYTES # (AUTO) 0.4 (0.2-0.8); MONOCYTES % 4.6 % (4.4-11.3); NEUTROPHILS # (AUTO) 7.3 (2.1-6.9); NEUTROPHILS % 88.1 % (38.7-80.0); PLATELET COUNT 247 x10e3/uL (140-360); RED BLOOD COUNT 4.55 x10e6/uL (3.6-5.1); RED CELL DISTRIBUTION WIDTH 13.4 % (11.7-14.4); WHITE BLOOD COUNT 8.33 x10e3/uL (4.8-10.8)
[2025-02-18 07:14] LABS: ALBUMIN 3.6 g/dL (3.5-5.0); ANION GAP 15.5 mmol/L (8-16); BILIRUBIN,TOTAL 0.6 mg/dL (0.2-1.2); CALCIUM 8.8 mg/dL (8.4-10.2); CREATININE, SERUM 2.8 mg/dL (0.57-1.11); POTASSIUM 3.5 mmol/L (3.5-5.1); TOTAL PROTEIN 7.2 g/dL (6.5-8.1)
[2025-02-18] MEDS: SODIUM CHLORIDE 0.9% 1000ML 1,000 ML IV STA (07:15)
[2025-02-18] MEDS: DICYCLOMINE HCL 20 MG/2 ML VIAL IM ONE (07:16)
[2025-02-18 08:53] LABS: BILIRUBIN,URINE NEGATIVE (NEGATIVE); CLARITY,URINE CLOUDY (CLEAR); COLOR,URINE YELLOW (YELLOW); GLUCOSE, URINE NEGATIVE (NEGATIVE); KETONES,URINE NEGATIVE (NEGATIVE); LEUKOCYTE ESTERASE ,URINE SMALL (NEGATIVE); NITRITE,URINE NEGATIVE (NEGATIVE); PH,URINE 6 (5 - 7); PROTEIN,URINE DIPSTICK >=300 (NEGATIVE); URINE UROBILINOGEN 0.2 mg/dL (0.2 - 1)
[2025-02-18 09:07] LABS: WBC,URINE (MAN) >50 /HPF (0-5)
[2025-02-18 09:13] LABS: BACTERIA,URINE MODERATE /HPF; EPITHELIAL CELLS,URINE RARE /LPF
[2025-02-18] MEDS: SODIUM CHLORIDE 0.9% 1000ML 1,000 ML IV SCH (09:13)
[2025-02-18] MEDS ORDERED: METRONIDAZOLE 500MG/NS 100ML 100 ML IV SCH (14:00)
[2025-02-18] MEDS: METRONIDAZOLE 500MG/NS 100ML 100 ML IV SCH (16:36)
[2025-02-18] MEDS: ACETAMINOPHEN 325 MG TAB PO PRN (16:36)
[2025-02-18] MEDS: AMLODIPINE BESYLATE 10 MG TAB PO SCH (21:08)
[2025-02-19] VITALS (9 sets, daily range): BP systolic 108–156; BP diastolic 66–84; PULSE 70–99; RESP 18–20; TEMP 97.2–98.2; O2SAT 95–99
[2025-02-19 05:56] LABS: BASOPHILS % 0.5 % (0.0-1.0); EOSINOPHILS # (AUTO) 0.1 (0.0-0.4); EOSINOPHILS % 3.4 % (0.0-6.0); HEMATOCRIT 31.9 % (34.2-44.1); HEMOGLOBIN 10.8 g/dL (12.0-16.0); LYMPHOCYTES # (AUTO) 0.6 (1.0-3.2); LYMPHOCYTES % 15.2 % (18.0-39.1); MEAN CORPUSCULAR HEMOGLOBIN 29.2 pg (28-32); MEAN CORPUSCULAR HGB CONC 33.9 g/dL (31-35); MEAN CORPUSCULAR VOLUME 86.2 fL (81-99); MONOCYTES # (AUTO) 0.4 (0.2-0.8); MONOCYTES % 11.3 % (4.4-11.3); NEUTROPHILS # (AUTO) 2.7 (2.1-6.9); NEUTROPHILS % 69.1 % (38.7-80.0); PLATELET COUNT 186 x10e3/uL (140-360); RED CELL DISTRIBUTION WIDTH 13.6 % (11.7-14.4); WHITE BLOOD COUNT 3.88 x10e3/uL (4.8-10.8)
[2025-02-19 06:43] LABS: ANION GAP 13.1 mmol/L (8-16); CALCIUM 8.1 mg/dL (8.4-10.2); CREATININE, SERUM 2.5 mg/dL (0.57-1.11)
[2025-02-19 06:44] LABS: POTASSIUM 3.1 mmol/L (3.5-5.1)
[2025-02-19] MEDS: PANTOPRAZOLE SOD 40 MG TABEC PO SCH (10:04)
[2025-02-19] MEDS: POTASSIUM CHLORIDE 20 MEQ TAB CR PO ONE (12:15)
[2025-02-19] MEDS: HYDROCODONE/APAP 5MG-325MG TAB PO PRN (12:15)
[2025-02-20 03:50] VITALS: BP 136/84; PULSE 75; RESP 20; TEMP 98.2; O2SAT 99
[2025-02-20 08:28] VITALS: BP 140/83; PULSE 78; RESP 18; TEMP 98.1; O2SAT 97
[2025-02-20 09:30] VITALS: BP 140/83; PULSE 78; RESP 18; TEMP 98.1; O2SAT 97
[2025-02-20 12:34] VITALS: BP 132/77; PULSE 81; RESP 18; TEMP 98.2; O2SAT 99
[2025-02-20] MEDS ORDERED: AUGMENTIN 500-1 EACH PO (15:08)
[2025-02-20] MEDS ORDERED: METRONIDAZOLE500 MG PO (15:08)
[2025-02-20 15:24] LABS: ANION GAP 14.4 mmol/L (8-16); CALCIUM 8.3 mg/dL (8.4-10.2); CREATININE, SERUM 2.36 mg/dL (0.57-1.11)
[2025-02-20 15:27] LABS: POTASSIUM 3.4 mmol/L (3.5-5.1)
[2025-02-20 16:15] VITALS: BP 130/84; PULSE 84; RESP 18; TEMP 98.1; O2SAT 100
== END 2025-02-20 16:00 | disposition home or self-care (01) ==
LOC: ER 06:19 → ERHOLD 07:34 → MED/SURG3 09:30
PROVIDERS: ADMIT Internal Medicine; ATTEND Internal Medicine
DX: A09 Infectious gastroenteritis and colitis, unspecified (principal); I12.9 Hypertensive chronic kidney disease with stage 1 through stage 4 chronic kidney disease, or unspecified chronic kidney disease; N18.30 Chronic kidney disease, stage 3 unspecified; N17.9 Acute kidney failure, unspecified
CPT/HCPCS: 36415 ×3; 74176; 80048 ×2; 80053; 81001; 83690; 85025 ×2; 87086; 94799 ×2; 99252; 99284; G0378 ×3; J0500; J0696 ×3; J2470 ×3; J7030 ×3

== ENCOUNTER 2025-05-10 17:19 | Emergency (ER) | payer OTHER ==
[~2025-05-10] VITALS: Ht 162.6 cm; Wt 106.6 kg
[~2025-05-10 17:19] MED LIST: AUGMENTIN 500-1 EACH PO; METRONIDAZOLE500 MG PO
[2025-05-10 18:01] VITALS: PULSE 94; RESP 17; TEMP 98.6
[2025-05-10 18:44] LABS: LEUKOCYTE ESTERASE ,URINE MODERATE (NEGATIVE); PROTEIN,URINE DIPSTICK >=300 (NEGATIVE); URINE UROBILINOGEN 0.2 mg/dL (0.2 - 1)
[2025-05-10] MEDS ORDERED: CEFDINIR300 MG PO (18:55)
[2025-05-10] MEDS ORDERED: PYRIDIUM200 MG PO (18:55)
[2025-05-10 18:59] LABS: WBC,URINE (MAN) >50 /HPF (0-5)
[2025-05-10 19:00] LABS: EPITHELIAL CELLS,URINE MANY /LPF
[2025-05-10 19:32] VITALS: BP 134/90; PULSE 85; RESP 16; TEMP 98.6; O2SAT 98
== END 2025-05-10 19:36 | disposition home or self-care (01) ==
LOC: ER 18:10
DX: R30.0 Dysuria (principal); N39.0 Urinary tract infection, site not specified; I10 Essential (primary) hypertension; E78.5 Hyperlipidemia, unspecified; F41.9 Anxiety disorder, unspecified; Z87.442 Personal history of urinary calculi
CPT/HCPCS: 81001; 87086; 87186; 99283